=== PATIENT | female | born 1955 | race African-American/Black ===

== ENCOUNTER 2016-10-15 10:47 | Day surgery (SDC) | payer MEDICARE, OTHER ==
[~2016-10-15] VITALS: Ht 157.5 cm; Wt 68.2 kg
[~2016-10-15 10:47] MED LIST: APIX2.5T PO; CLAR10CA3 PO; FERR325T PO; HYDR-3583 PO; LOPE2TAB PO; LORA-392 PO; METO25TA3 PO; METR-1 PO; PANT40TA3 PO; PROM25SU RECTAL; PROM25TA5 PO; THERTAB15 PO
[2016-10-15] MEDS ORDERED: DEXA2TAB PO (11:27)
[2016-10-15] MEDS ORDERED: SIMV40TA PO (11:27)
[2016-10-15] MEDS ORDERED: NIFE1TAB86 PO (11:27)
[2016-10-15] MEDS ORDERED: DOCU100C PO (11:27)
[2016-10-15 11:36] VITALS: BP 159/87; PULSE 93; RESP 16; TEMP 98.2; O2SAT 100
[2016-10-15 11:53] LABS: EOSINOPHIL % 0.9 % (0.0-4.0); HEMATOCRIT 30.3 % (35.0-46.0); LYMPH % 40.8 % (9.0-44.0); LYMPHOCYTE # 0.8 TH/MM3 (1.0-4.8); MEAN CELL VOLUME 83.9 FL (80.0-100.0); MEAN CORPUSCULAR HEMOGLOBIN 27.6 PG (27.0-34.0); MEAN CORPUSCULAR HGB CONC 32.9 % (32.0-36.0); MONO % 7.7 % (0.0-8.0); NEUT % 49.6 % (16.0-70.0); PLATELET COUNT 88 TH/MM3 (150-450); RED BLOOD COUNT 3.61 MIL/MM3 (4.00-5.30); WHITE BLOOD COUNT 2.1 TH/MM3 (4.0-11.0)
[2016-10-15 11:55] LABS: HEMO FLAGS AUTO DIFF
[2016-10-15 12:21] LABS: BICARBONATE 28.8 MEQ/L (21.0-32.0); POTASSIUM 3.8 MEQ/L (3.5-5.1)
[2016-10-15 12:31] LABS: PLATELET ESTIMATE SMEAR LOW (NORMAL); PLATELET MORPHOLOGY NORMAL (NORMAL); SCAN/DIFF AUTO DIFF CONFIRMED
[2016-10-15] MEDS ORDERED: HEPARIN-NS/PF INJ 500 ML ONE (12:56)
[2016-10-15] MEDS ORDERED: MIDAZOLAM HCL 2 MG/2 ML VIAL ONE (12:57)
[2016-10-15] MEDS ORDERED: HEPARIN SODIUM - IV 10,000 UNITS/10 ML VIAL ONE (12:57)
--- NOTE | 2016-10-15 14:08 | MA ---
cc: DAVE SIU DATE: 10/15/2016 PREOPERATIVE DIAGNOSIS Difficulty with access left upper extremity AV fistula. POSTOPERATIVE DIAGNOSIS Difficulty with access left upper extremity AV fistula. PROCEDURE Fistulogram. DETAILS OF PROCEDURE The patient's left upper extremity was prepped and draped in a sterile fashion. There were multiple areas of ecchymosis around this that could be seen visibly through the skin and through ultrasound of the left upper extremity. Using ultrasound I got access just distal to the anastomosis of the left cephalic vein. After I got access to this area I injected dye through a micropuncture catheter. My findings were that the central arterial circulation including the left innominate vein, subclavian and axillary veins appeared to be widely patent. The left outflow cephalic vein appeared to be patent. It should be noted that it was difficult to see the arterial anastomosis as the flow was so brisk, although I suspect this was patent as well. At the end of the procedure we removed the catheter out and applied pressure to the left arm. The patient tolerated the procedure well. DO DONNELL Gallego/PAULETTE /1:38 PM /1:56 PM
[2016-10-15] MEDS ORDERED: IOHEXOL 350 MG/ML 50 ML BTL (for Cath Lab) OTHER ONE (14:15)
[2016-10-15] MEDS ORDERED: ONDANSETRON HCL 4 MG/2 ML VIAL ONE (15:14)
[2016-10-15] MEDS ORDERED: LORazepam 2 MG/ML VIAL IVP PRN (16:00)
[2016-10-15] MEDS ORDERED: POTASSIUM CHLORIDE 20 MEQ CONTROLLED RELEASE TAB PO PRN (16:00)
[2016-10-15] MEDS ORDERED: HOLD GLUCOPHAGE, GLUCOPHAGE XR, AND AVANDAMET XX PRN (16:00)
[2016-10-15] MEDS ORDERED: ATROPINE SULFATE 1 MG/ML VIAL IV PUSH PRN (16:00)
[2016-10-15] MEDS ORDERED: METOCLOPRAMIDE HCL 10 MG/2 ML VIAL IVS PRN (16:00)
[2016-10-15] MEDS ORDERED: SODIUM CHLOR 0.9% 250 ML IV PRN (16:00)
[2016-10-15] MEDS ORDERED: SODIUM NITROPRUSSIDE 50 MG/250 ML D5W IV SCH ×2 (16:00)
[2016-10-15] MEDS ORDERED: ONDANSETRON HCL 4 MG/2 ML VIAL IV PRN (16:00)
[2016-10-15] MEDS ORDERED: ENALAPRILAT 1.25 MG/ML VIAL IV PRN (16:00)
[2016-10-15] MEDS ORDERED: LABETALOL HCL 100 MG/20 ML VIAL IVP PRN (16:00)
[2016-10-15] MEDS ORDERED: cloNIDine HCL 0.1 MG TAB PO PRN (16:00)
[2016-10-15] MEDS ORDERED: oxyCODONE/ACETAMINOPHEN 5 MG/325 MG TAB PO PRN ×2 (16:00)
[2016-10-16] MEDS ORDERED: ASPIRIN EC 81 MG TABEC PO SCH (09:00)
[2016-11-05] MEDS ORDERED: REGL10TA5 PO (07:11)
[2016-11-05] MEDS ORDERED: ONDA8TAB8 SL (07:11)
[2016-11-05] MEDS ORDERED: PARO10TA2 PO (07:11)
[2016-11-05] MEDS ORDERED: RENACAP2 PO (07:11)
== END 2016-10-15 16:00 | disposition home or self-care (01) ==
LOC: HDOC 10:47 → HDIC 10:48 → HDOC 16:00
PROVIDERS: ATTEND Surgery
DX: T82.898A Other specified complication of vascular prosthetic devices, implants and grafts, initial encounter (principal); I10 Essential (primary) hypertension; E78.5 Hyperlipidemia, unspecified; E11.9 Type 2 diabetes mellitus without complications; Z79.84 Long term (current) use of oral hypoglycemic drugs; Z79.01 Long term (current) use of anticoagulants; N18.6 End stage renal disease
CPT/HCPCS: 75820; 80048; 85025; 85610; J1644; J2250; J2405; J3010; Q9967

== ENCOUNTER → 2016-11-05 | Day surgery (SDC) | payer MEDICARE, OTHER ==
[~2016-11-05] VITALS: Ht 157.5 cm; Wt 59.3 kg
[~2016-11-05] MED LIST changes: +ACETAMINOPHEN/HYDROcodone 325 MG/5 MG TAB PO PRN; +BUPIVACAINE/EPINEPHRINE 0.25% PF 30 ML VIAL ONE; +DEXA2TAB PO; +DO NOT ADM ANY ANTICOAGULANT DRUGS XX PRN; +DOCU100C PO; +FAMOTIDINE 20 MG/2 ML VIAL ONE; +GELFOAM SIZE 100 ONE; +HEPARIN SODIUM - IV 10,000 UNITS/10 ML VIAL ONE; +HEPARIN SODIUM - SQ 10,000 UNITS/ML VIAL ONE; +INSULIN HUMAN REGULAR 1,000 UNITS/10 ML VIAL SQ PRN; +Infusaport/Implanted VAD PRN NS Lock Flush IVF; +LACTATED RINGER'S 1000 ML IV SCH; +MAGNESIUM SULFATE 1 GM/100 ML IV PRN; +METOCLOPRAMIDE HCL 10 MG/2 ML VIAL IV ONE; +METOCLOPRAMIDE HCL 10 MG/2 ML VIAL ONE; +METOPROLOL TARTRATE 25 MG TAB ONE; +METOPROLOL TARTRATE 25 MG TAB PO PRN; -METR-1 PO; +MIDAZOLAM HCL 2 MG/2 ML VIAL ONE; +MORPHINE SULFATE 4 MG/ML INJ IV PRN; +NIFE1TAB86 PO; +ONDA8TAB8 SL; +ONDANSETRON HCL 4 MG/2 ML VIAL IV ONE; +ONDANSETRON HCL 4 MG/2 ML VIAL IV PUSH PRN; +PARO10TA2 PO; +POTASSIUM CHLOR 20 MEQ 100 ML x 2 BAGS IV PRN; +POTASSIUM CHLOR 20 MEQ/100 ML x 1 BAG IV PRN; +POTASSIUM PHOSPHATE 21 MMOL/NS 250 ML IV PRN; +PROPOFOL 200 MG/20 ML AMP IV ONE; +PROTAMINE SULFATE 50 MG/5 ML VIAL ONE; +REGL10TA5 PO; +RENACAP2 PO; +SIMV40TA PO; +SODIUM CHLOR 0.9% 250 ML INJ 250 ML ONE; +SODIUM CHLORID 0.9% 500 ML INJ 500 ML ONE; +SODIUM CHLORID 0.9% 500 ML IV SCH; +SODIUM CHLORIDE 0.9% FLUSH 5 ML FLUSH IV FLUSH PRN; +SODIUM CHLORIDE 0.9% FLUSH 5 ML FLUSH IV FLUSH SCH; +THROMBIN (TOPICAL) 5,000 UNIT VIAL ONE; +VANCOMYCIN HCL 1000 MG VIAL ONE; +ceFAZolin 2 GM PREMIX 50 ML ONE
[2016-11-05 07:21] VITALS: BP 107/71; PULSE 125; RESP 20; TEMP 98.7; O2SAT 94
[2016-11-05 07:42] LABS: AUTOMATED NEUTROPHIL # 3.2 TH/MM3 (1.8-7.7); BASOPHIL % 0.9 % (0.0-2.0); EOSINOPHIL % 0.2 % (0.0-4.0); HEMATOCRIT 30.4 % (35.0-46.0); HEMO FLAGS DIFF FINAL; MEAN CELL VOLUME 85.9 FL (80.0-100.0); MEAN CORPUSCULAR HEMOGLOBIN 27.8 PG (27.0-34.0); MEAN CORPUSCULAR HGB CONC 32.3 % (32.0-36.0); MONO % 14.3 % (0.0-8.0); NEUT % 64.6 % (16.0-70.0); PLATELET COUNT 157 TH/MM3 (150-450); RED BLOOD COUNT 3.54 MIL/MM3 (4.00-5.30); RED CELL DISTRIBUTION WIDTH 22.4 % (11.6-17.2)
[2016-11-05 07:57] LABS: ALT (GPT) 13 U/L (10-53); ANION GAP 13 MEQ/L (5-15); AST (GOT) 19 U/L (15-37); BICARBONATE 23.2 MEQ/L (21.0-32.0); CHLORIDE 103 MEQ/L (98-107); GLOMERULAR FILTRATION RATE 8 ML/MIN (>89); POTASSIUM 3.8 MEQ/L (3.5-5.1); SODIUM (NA) 139 MEQ/L (136-145)
[2016-11-05 08:03] LABS: ALKALINE PHOSPHATASE 127 U/L (45-117); BLOOD UREA NITROGEN 32 MG/DL (7-18); TOTAL BILIRUBIN ADULT 0.6 MG/DL (0.2-1.0)
--- NOTE | 2016-11-05 08:16 | RADRPT ---
EXAM DATE/TIME: 11/05/2016 06:39 [facility] COMPARISON: CHEST SINGLE AP, September 05, 2016, 16:14. INDICATIONS: Evaluate for ant pulmonary disease as patient is pre-op for A-V fistula. MEDICAL HISTORY: Hypertension. Gastroesophageal reflux disease. SURGICAL HISTORY: Hysterectomy. ENCOUNTER: Initial ACUITY: 1 day PAIN SCORE: 0/10 LOCATION: Bilateral chest FINDINGS: A small left pleural effusion is noted. Right internal jugular Atbzhk-R-Fufi has its tip in the supe rior vena cava. Left internal jugular tunnel dialysis catheter has its tips in the right atrium. Th ere is no pneumothorax. The heart is stable. The pulmonary vascular pattern is normal. The lungs a re otherwise clear. Degenerative changes are noted throughout the thoracolumbar spine. CONCLUSION: 1. Small left pleural effusion. 2. Degenerative changes throughout the thoracolumbar spine. Renny Spencer MD on November 05, 2016 at 7:05 Board Certified Radiologist. This report was verified electronically.
--- NOTE | 2016-11-05 10:39 | MP ---
cc: DAVE VELIZ DATE OF SURGERY 11/05/2016 PREOPERATIVE DIAGNOSIS End-stage renal disease. POSTOPERATIVE DIAGNOSIS End-stage renal disease. PROCEDURE Right upper extremity brachial-brachial A-V fistula creation. SURGEON Dr. Veliz SOLDERING INSPECTOR Nila Robison. ANESTHESIA Local with 20 cc of 0.25% Marcaine with epinephrine right upper extremity and MAC. IV FLUIDS 300 cc. URINE OUTPUT Not calculated. COMPLICATIONS None. PROCEDURE The patient's right upper extremity was prepped and draped in sterile fashion after being under MAC anesthesia. I got access on the medial aspect of the right arm with a scalpel and electrocautery. I dissected down to the brachial artery and brachial vein with fine Metzenbaum scissors. With sharp dissection I removed the periadventitial tissue to mobilize the brachial artery. Once I mobilized the brachial artery and the brachial vein, I tied off side branches with small and medium clips as needed as well as 2-0 silk ties. We ended up using 3000 units of heparin before using pediatric profunda clamps in order to control the brachial artery. I made an arteriotomy with an 11-blade and micro-Valdovinos scissors. I then divided the brachial vein distally with a medium clip, then a 2-0 silk suture. Once I divided it, I performed an end-to-side anastomosis with the brachial vein to the brachial artery. At the end there was a good thrill in the fistula and there was an audible thrill in the right radial artery and the palmar arch. I use Surgicel to help out with hemostasis and minimal use of electrocautery. I then closed in layers with interrupted 2-0 and 3-0 Vicryl absorbable sutures and a 4-0 Monocryl. The patient tolerated the procedure we placed Dermabond over the skin and a Kerlix dressing at the end of the case. DO DONNELL Gallego/DAR /10:16 AM /10:34 AM
--- NOTE | 2016-11-05 12:18 | EKG ---
Date Performed: 11/05/2016 Time Performed: 06:53:07 PTAGE: 61 years EKG: SINUS TACHYCARDIA MARKED LEFT AXIS DEVIATION PATTERN CONSISTENT WITH PULMONARY DISEASE Comp ared to prior tracing no significant change ABNORMAL ECG PREVIOUS TRACING : 08/16/2016 17.44 DOCTOR: Trenton Townsend Interpretating Date/Time 11/05/2016 12:18:10
[2016-11-05 12:25] VITALS: BP 114/81; PULSE 98; RESP 17; TEMP 97.8; O2SAT 100
== END | disposition home or self-care (01) ==
LOC: HSDC 06:08
PROVIDERS: ATTEND Surgery
DX: I12.0 Hypertensive chronic kidney disease with stage 5 chronic kidney disease or end stage renal disease (principal); N18.6 End stage renal disease; E11.22 Type 2 diabetes mellitus with diabetic chronic kidney disease; K21.9 Gastro-esophageal reflux disease without esophagitis; J90 Pleural effusion, not elsewhere classified; R94.31 Abnormal electrocardiogram [ECG] [EKG]; Z99.2 Dependence on renal dialysis
CPT/HCPCS: 01844; 36821; 71010; 76937; 80053; 85025; 86850; 86900; 86901; 93005; J1642; J1644; J2250; J2405; J2765; J3010; J3370; J7040; J7050; J0690; J2720

== ENCOUNTER 2016-11-08 14:15 | Inpatient (IN) | payer MEDICARE, OTHER ==
[~2016-11-08] VITALS: Ht 152.4 cm; Wt 60.4 kg
[~2016-11-08 14:15] MED LIST changes: -ACETAMINOPHEN/HYDROcodone 325 MG/5 MG TAB PO PRN; -BUPIVACAINE/EPINEPHRINE 0.25% PF 30 ML VIAL ONE; -DEXA2TAB PO; -DO NOT ADM ANY ANTICOAGULANT DRUGS XX PRN; -FAMOTIDINE 20 MG/2 ML VIAL ONE; -GELFOAM SIZE 100 ONE; -HEPARIN SODIUM - IV 10,000 UNITS/10 ML VIAL ONE; -HEPARIN SODIUM - SQ 10,000 UNITS/ML VIAL ONE; -INSULIN HUMAN REGULAR 1,000 UNITS/10 ML VIAL SQ PRN; -Infusaport/Implanted VAD PRN NS Lock Flush IVF; -LACTATED RINGER'S 1000 ML IV SCH; -LOPE2TAB PO; -MAGNESIUM SULFATE 1 GM/100 ML IV PRN; -METOCLOPRAMIDE HCL 10 MG/2 ML VIAL IV ONE; -METOCLOPRAMIDE HCL 10 MG/2 ML VIAL ONE; -METOPROLOL TARTRATE 25 MG TAB ONE; -METOPROLOL TARTRATE 25 MG TAB PO PRN; -MIDAZOLAM HCL 2 MG/2 ML VIAL ONE; -MORPHINE SULFATE 4 MG/ML INJ IV PRN; -ONDANSETRON HCL 4 MG/2 ML VIAL IV ONE; -ONDANSETRON HCL 4 MG/2 ML VIAL IV PUSH PRN; -POTASSIUM CHLOR 20 MEQ 100 ML x 2 BAGS IV PRN; -POTASSIUM CHLOR 20 MEQ/100 ML x 1 BAG IV PRN; -POTASSIUM PHOSPHATE 21 MMOL/NS 250 ML IV PRN; -PROPOFOL 200 MG/20 ML AMP IV ONE; -PROTAMINE SULFATE 50 MG/5 ML VIAL ONE; -SIMV40TA PO; -SODIUM CHLOR 0.9% 250 ML INJ 250 ML ONE; -SODIUM CHLORID 0.9% 500 ML INJ 500 ML ONE; -SODIUM CHLORID 0.9% 500 ML IV SCH; -SODIUM CHLORIDE 0.9% FLUSH 5 ML FLUSH IV FLUSH PRN; -SODIUM CHLORIDE 0.9% FLUSH 5 ML FLUSH IV FLUSH SCH; -THERTAB15 PO; -THROMBIN (TOPICAL) 5,000 UNIT VIAL ONE; -VANCOMYCIN HCL 1000 MG VIAL ONE; -ceFAZolin 2 GM PREMIX 50 ML ONE
[2016-11-08 14:17] VITALS: BP 103/62; PULSE 126; RESP 28; TEMP 97.8; O2SAT 95
[2016-11-08] MEDS ORDERED: ONDANSETRON HCL 4 MG/2 ML VIAL IVP ONE (15:30)
[2016-11-08] MEDS ORDERED: SODIUM CHLORID 0.9% 500 ML INJ 500 ML IV ONE (15:30)
[2016-11-08] MEDS ORDERED: SODIUM CHLORIDE 0.9% FLUSH 5 ML FLUSH IVF PRN (15:30)
[2016-11-08] MEDS ORDERED: HYDROmorphone HCL PF 1 MG/ML VIAL IV PUSH ONE (15:30)
--- NOTE | 2016-11-08 15:34 | PD ---
HPI Chief Complaint: Abdominal Pain Time Seen by Provider: 15:27 Travel History International Travel<30 days: No Contact w/Intl Traveler<30days: No Traveled to known affect area: No History of Present Illness HPI 61-year-old female presents to the emergency department for evaluation nausea, vomiting, abdominal pain. She states this started a week ago, but for the last 4 days, she is unable to keep any food or fluids down. Patient is undergoing chemotherapy by Dr. Bai for endometrial cancer that has metastasized to the lung, liver. The patient also states she has been slightly increased shortness of breath. She has tried Zofran, Phenergan, Reglan at home with no improvement. She has chronic renal failure and is on dialysis Saturday, , Saturday by Dr. Nava. She probably had an AV fistula placed on Saturday of this week in her right upper arm, but is not working. She did receive dialysis on Saturday and stated that very little fluid was taken off. Patient states she feels dehydrated. PFSH Past Medical History Hx Anticoagulant Therapy: Yes Arthritis: Yes Asthma: No Autoimmune Disease: No Heart Rhythm Problems: No Cancer: Yes Cardiovascular Problems: Yes High Cholesterol: No Chemotherapy: Yes Chest Pain: No Congestive Heart Failure: No COPD: No Diabetes: Yes Dialysis: Yes Diminished Hearing: No Endocrine: No Gastrointestinal Disorders: Yes (REFLUX) GERD: No Genitourinary: Yes Hepatitis: No Hiatal Hernia: No Hypertension: Yes Immune Disorder: No Implanted Vascular Access Dvce: Yes Kidney Stones: No Musculoskeletal: Yes Neurologic: No Psychiatric: No Reproductive: No Respiratory: Yes Radiation Therapy: No Renal Failure: Yes Sickle Cell Disease: No Sleep Apnea: No Thyroid Disease: No Ulcer: No Past Surgical History Abdominal Surgery: Yes AICD: No Arteriovenous Shunt: No Body Medical Devices: N/A Cardiac Surgery: No Ear Surgery: No Endocrine Surgery: No Eye Surgery: No Genitourinary Surgery: Yes (STENTS TOSHA. URETERS) Gynecologic Surgery: Yes (HYSTERECTOMY) Hysterectomy: Yes Insulin Pump: No Joint Replacement: No Oral Surgery: No Pacemaker: No Thoracic Surgery: No Other Surgery: Yes (2 stents in kidney, VASCATH AND PORT IN R UPPER CHEST) Social History Alcohol Use: No Tobacco Use: No Substance Use: No Allergies-Medications (Allergen,Severity, Reaction): Coded Allergies: No Known Allergies (Unverified , 11/08/16) Reported Meds & Prescriptions Reported Meds & Active Scripts Active Hydrocodone-Acetaminophen 10-325 mg Tab 1 Tab PO Q6HR PRN Pantoprazole (Pantoprazole Sodium) 40 Mg Tab 40 Mg PO DAILY Phenergan (Promethazine HCl) 25 Mg Tab 25 Mg PO Q4H PRN Promethegan Supp (Promethazine HCl) 25 Mg Supp 25 Mg RECTAL DAILY PRN Metoprolol Tartrate 25 Mg Tab 25 Mg PO Q12H Eliquis (Apixaban) 2.5 Mg Tab 2.5 Mg PO BID Ativan (Lorazepam) 0.5 Mg Tab 0.5 Mg PO Q6H PRN Reported Reglan (Metoclopramide HCl) 10 Mg Tab 10 Mg PO TIDAC Renal Vitamin (B-Complex W/ C & Folic Acid) 1 Cap 1 Cap PO DAILY If on dialysis, take after treatment. Paroxetine (Paroxetine HCl) 10 Mg Tab 10 Mg PO DAILY Ondansetron Odt 8 Mg Tab 8 Mg SL Q8H PRN Docusate Sodium 100 Mg Cap 100 Mg PO BID Claritin (Loratadine) 10 Mg Cap 10 Mg PO DAILY Ferrous Sulfate 325 Mg Tab 325 Mg PO DAILY Review of Systems Except as stated in HPI: all other systems reviewed are Neg Physical Exam Narrative GENERAL: Well-developed well-nourished female patient, afebrile. SKIN: Warm and dry. There is an AV fistula to the right upper arm with no bruit or thrill. She does have a Vas-Cath to the left chest. There is an old AV fistula to the left upper arm. HEAD: Normocephalic. Atraumatic. EYES: No scleral icterus. No injection or drainage. NECK: Supple, trachea midline. No JVD or lymphadenopathy. CARDIOVASCULAR: Regular rate and rhythm without murmurs, gallops, or rubs. RESPIRATORY: Breath sounds equal bilaterally. No accessory muscle use. Lungs sounds diminished. GASTROINTESTINAL: Abdomen soft with diffuse tenderness. MUSCULOSKELETAL: No cyanosis, or edema. BACK: Nontender without obvious deformity. No CVA tenderness. Data Data Last Documented VS Vital Signs Date Time Temp Pulse Resp B/P Pulse Ox O2 Delivery O2 Flow Rate FiO2 11/08/16 17:30 114 18 113/72 97 Room Air 11/08/16 14:17 97.8 Orders Complete Blood Count With Diff (11/08/16 15:24) Comprehensive Metabolic Panel (11/08/16 15:24) Lipase (11/08/16 15:24) Prothrombin Time / Inr (Pt) (11/08/16 15:24) Act Partial Throm Time (Ptt) (11/08/16 15:24) Ct Abd/Pel W/O Iv Contrast (11/08/16 15:24) Iv Access Insert/Monitor (11/08/16 15:24) Ecg Monitoring (11/08/16 15:24) Oximetry (11/08/16 15:24) Ondansetron Inj (Zofran Inj) (11/08/16 15:30) Sodium Chloride 0.9% Flush (Ns Flush) (11/08/16 15:30) Electrocardiogram (11/08/16 15:24) Sodium Chlorid 0.9% 500 Ml Inj (Ns 500 M (11/08/16 15:30) Hydromorphone Pf Inj (Dilaudid Pf Inj) (11/08/16 15:30) Chest, Single Ap (11/08/16 ) Magnesium (Mg) (11/08/16 15:34) Place Ng Tube To Low Intermit (11/08/16 17:00) Insert Ng Tube (11/08/16 17:00) Labs Laboratory Tests Test 11/08/16 17:00 White Blood Count 4.9 TH/MM3 Red Blood Count 3.19 MIL/MM3 Hemoglobin 9.2 GM/DL Hematocrit 29.1 % Mean Corpuscular Volume 91.1 FL Mean Corpuscular Hemoglobin 28.9 PG Mean Corpuscular Hemoglobin 31.7 % Concent Red Cell Distribution Width 25.6 % Platelet Count 165 TH/MM3 Mean Platelet Volume 7.3 FL Neutrophils (%) (Auto) 67.3 % Lymphocytes (%) (Auto) 14.0 % Monocytes (%) (Auto) 18.2 % Eosinophils (%) (Auto) 0.1 % Basophils (%) (Auto) 0.4 % Neutrophils # (Auto) 3.3 TH/MM3 Lymphocytes # (Auto) 0.7 TH/MM3 Monocytes # (Auto) 0.9 TH/MM3 Eosinophils # (Auto) 0.0 TH/MM3 Basophils # (Auto) 0.0 TH/MM3 CBC Comment AUTO DIFF Prothrombin Time 13.4 SEC Prothromb Time International 1.2 RATIO Ratio Activated Partial 33.8 SEC Thromboplast Time Sodium Level 141 MEQ/L Potassium Level 4.6 MEQ/L Chloride Level 101 MEQ/L Carbon Dioxide Level 25.6 MEQ/L Anion Gap 14 MEQ/L Blood Urea Nitrogen 52 MG/DL Creatinine 7.26 MG/DL Estimat Glomerular Filtration 7 ML/MIN Rate Random Glucose 77 MG/DL Calcium Level 8.4 MG/DL Magnesium Level 2.0 MG/DL Total Bilirubin 0.6 MG/DL Aspartate Amino Transf 18 U/L (AST/SGOT) Alanine Aminotransferase 13 U/L (ALT/SGPT) Alkaline Phosphatase 128 U/L Total Protein 7.3 GM/DL Albumin 2.1 GM/DL Lipase 54 U/L MDM Medical Decision Making Medical Screen Exam Complete: Yes Emergency Medical Condition: Yes Medical Record Reviewed: Yes Interpretation(s) Last Impressions Abdomen/Pelvis CT 11/08/16 1524 Signed Impressions: Service Date/Time: November 16:18 - CONCLUSION: 1. The small bowel is quite distended throughout except for the very distal terminal ileum. I do not see a transition point but small bowel is clearly more dilated than in June 2016. The colon is decompressed; it could be a distal small bowel obstruction. 2. Severe hydronephrosis and hydroureter bilaterally with removal of the Double-J ureteral catheters. 3. The left lobe of the liver metastatic lesion is clearly smaller. Luis Mar MD Chest X-Ray 11/08/16 0000 Signed Impressions: Service Date/Time: November 15:39 - CONCLUSION: Moderate- sized left pleural effusion. Right-sided Lmgnxb-l-Iaig catheter and left-sided dual-lumen catheter in good position. Luis Mar MD Differential Diagnosis Electrolyte abnormality versus ACS versus acute on chronic renal failure Narrative Course 61-year-old female presents to the emergency Department treatment we should nausea, vomiting, abdominal pain. Patient is a cancer patient with Dr. Phoenix currently undergoing chemotherapy as well as a dialysis patient. EKG, CBC, CMP , magnesium, lipase, PTT, PTT/INR ordered and pending. Chest x-ray and CT the abdomen/pelvis are ordered and pending. EKG shows sinus tachycardia, heart 108, no acute ST changes. CBC shows hemoglobin 9.2, hematocrit 29.1. CMP shows a 52, creatinine 7.26. Lipase is 54. Magnesium is 2.0. PT is 13.4, INR 1.2, PTT 33.8. Chest x-ray shows moderate-sized left pleural effusion, right-sided Fnzcoc-q-Vfcs catheter left- sided dual lumen catheter in good position. CT abdomen/pelvis shows 1. The small bowel is quite distended throughout except for the very distal terminal ileum. I do not see a transition point but small bowel is clearly more dilated than in June 2016. The colon is decompressed; it could be a distal small bowel obstruction; 2. Severe hydronephrosis and hydroureter bilaterally with removal of the Double-J ureteral catheters; 3. The left lobe of the liver metastatic lesion is clearly smaller. I spoke to Dr. Kimble who would like a flat/upright abdominal film in the morning and he will see her in the morning. Dr. Perez accepted admission. Diagnosis Primary Impression: Small bowel obstruction Additional Impression: ESRD on hemodialysis Admitting Information Admitting Physician Requests: Admit Ruth Ann Page Nov 08, 2016 15:34
--- NOTE | 2016-11-08 16:09 | RADRPT ---
EXAM DATE/TIME: 11/08/2016 15:39 [facility] COMPARISON: CHEST SINGLE AP, November 05, 2016, 6:39. INDICATIONS : Patient has had abdomen pain and vomiting for four days. MEDICAL HISTORY : Endometrial cancer, Bilateral ureteral obstruction, GERD, HLD, HTN, SURGICAL HISTORY : Laparoscopic hysterectomy with bilateral salpingo-oophorectomy, Vaginal ENCOUNTER: Initial ACUITY: 4 - 6 days PAIN SCORE: 8/10 LOCATION: Abdomen FINDINGS: A single view of the chest demonstrates the lungs to be symmetrically aerated without evidence of mas s, or infiltrate. Moderate left-sided pleural effusion. Right IJ central line and Gortfi-g-Fgpz in go od position. Left subclavian dual-lumen catheter is stable. The cardiomediastinal contours are unrema rkable. Osseous structures are intact. CONCLUSION: Moderate-sized left pleural effusion. Right-sided Bkudme-o-Zvpz catheter and left-sided dual-lumen ca theter in good position. Luis Mar MD on November 08, 2016 at 16:06 Board Certified Radiologist. This report was verified electronically.
--- NOTE | 2016-11-08 16:49 | RADRPT ---
EXAM DATE/TIME: 11/08/2016 16:18 [facility] COMPARISON: Prior study June 2016 used for comparison. INDICATIONS : Abdominal pain. Dialysis. ORAL CONTRAST: No oral contrast ingested. RADIATION DOSE: 9.86 CTDIvol (mGy) MEDICAL HISTORY : Renal failure, chronic. Hypertension. SURGICAL HISTORY : Hysterectomy. Tubal ligation. Dialysis catheter. ENCOUNTER: Initial ACUITY: 1 day PAIN SCALE: 5/10 LOCATION: Bilateral lower quadrant TECHNIQUE: Volumetric scanning of the abdomen and pelvis was performed. Using automated exposure control and adjustment of the mA and/or kV according to patient size, radiation dose was kept as low as reasonably achievable to obtain optimal diagnostic quality images. FINDINGS: Noncontrast CT scan of the abdomen and pelvis was performed. There is a mass in the le ft lobe of the liver that previously would distort the contour of the capsule. That is actually claudio rly smaller today. This is felt to be metastatic disease in June and May 2016. It is actua lly clearly smaller. The rest of the liver is unremarkable. There is some increased density within a noninflamed gallbladder. There is extensive distension of the small bowel with numerous loops. I do not see a definite transi tion zone. The colon is decompressed. The distal terminal ileum is not very distended. There is some fluid in the cul-de-sac. There are some scattered areas of free fluid within the mesen deborah. I do not see any free air. The kidney remains severely hydronephrotic. The Double-J ureteral catheters have been removed. The u reters are quite dilated. There is a large left pleural effusion. It is new from the previous study. Bone windows are unremar kable except for degenerative facet disease. CONCLUSION: 1. The small bowel is quite distended throughout except for the very distal terminal ileum. I do not see a transition point but small bowel is clearly more dilated than in June 2016. The colon is d ecompressed; it could be a distal small bowel obstruction. 2. Severe hydronephrosis and hydroureter bilaterally with removal of the Double-J ureteral catheters. 3. The left lobe of the liver metastatic lesion is clearly smaller. Luis Mar MD on November 08, 2016 at 16:41 Board Certified Radiologist. This report was verified electronically.
[2016-11-08 17:00] VITALS: RESP 18; O2SAT 98
[2016-11-08 17:30] VITALS: BP 113/72; PULSE 114; RESP 18; O2SAT 97
[2016-11-08 17:35] LABS: AUTOMATED NEUTROPHIL # 3.3 TH/MM3 (1.8-7.7); BASOPHIL % 0.4 % (0.0-2.0); EOSINOPHIL % 0.1 % (0.0-4.0); HEMATOCRIT 29.1 % (35.0-46.0); LYMPHOCYTE # 0.7 TH/MM3 (1.0-4.8); MEAN CELL VOLUME 91.1 FL (80.0-100.0); MEAN CORPUSCULAR HEMOGLOBIN 28.9 PG (27.0-34.0); MEAN CORPUSCULAR HGB CONC 31.7 % (32.0-36.0); MONO % 18.2 % (0.0-8.0); NEUT % 67.3 % (16.0-70.0); PLATELET COUNT 165 TH/MM3 (150-450); RED BLOOD COUNT 3.19 MIL/MM3 (4.00-5.30); RED CELL DISTRIBUTION WIDTH 25.6 % (11.6-17.2); WHITE BLOOD COUNT 4.9 TH/MM3 (4.0-11.0)
[2016-11-08 17:37] LABS: APTT (PATIENT) 33.8 SEC (24.3-30.1); INTERNATIONAL NORMALIZED RATIO 1.2 RATIO; PROTHROMBIN TIME - PATIENT 13.4 SEC (9.8-11.6)
[2016-11-08 17:45] LABS: ALKALINE PHOSPHATASE 128 U/L (45-117); ALT (GPT) 13 U/L (10-53); ANION GAP 14 MEQ/L (5-15); AST (GOT) 18 U/L (15-37); BICARBONATE 25.6 MEQ/L (21.0-32.0); BLOOD UREA NITROGEN 52 MG/DL (7-18); CHLORIDE 101 MEQ/L (98-107); GLOMERULAR FILTRATION RATE 7 ML/MIN (>89); POTASSIUM 4.6 MEQ/L (3.5-5.1); SODIUM (NA) 141 MEQ/L (136-145); TOTAL BILIRUBIN ADULT 0.6 MG/DL (0.2-1.0)
[2016-11-08 17:48] LABS: HEMO FLAGS AUTO DIFF
[2016-11-08 18:24] LABS: BURR CELLS 1+ (NORMAL); OVALOCYTES 1+ (NORMAL); PLATELET ESTIMATE SMEAR NORMAL (NORMAL); PLATELET MORPHOLOGY NORMAL (NORMAL); SCAN/DIFF AUTO DIFF CONFIRMED
[2016-11-08 18:57] VITALS: BP 111/66; PULSE 113; O2SAT 98
[2016-11-08] MEDS ORDERED: NALOXONE HCL 0.4 MG/ML AMP IV PRN (19:00)
--- NOTE | 2016-11-08 19:08 | HHI.HP ---
HPI Service [facility] Hospitalists Primary Care Physician Gregg Golden Jr, MD Admission Diagnosis SBO; ESRD on dialysis Chief Complaint: increasing abdominal pain Travel History International Travel<30 Days: No Contact w/Intl Traveler <30 Da: No Traveled to Known Affected Are: No History of Present Illness 61-year-old female presents to the emergency department for evaluation nausea, vomiting, abdominal pain. She states this started a week ago, but for the last 4 days, she is unable to keep any food or fluids down. Patient is undergoing chemotherapy by Dr. Bai for endometrial cancer that has metastasized to the lung, liver. The patient also states she has been slightly increased shortness of breath. She has tried Zofran, Phenergan, Reglan at home with no improvement. She has chronic renal failure and is on dialysis Saturday, , Saturday by Dr. Nava. She probably had an AV fistula placed on Saturday of this week in her right upper arm, but is not working. She did receive dialysis on Saturday and stated that very little fluid was taken off. In er found to have small bowel obstruction and admitted with consult to general surgery and will consult nephrology Review of Systems Gastrointestinal: COMPLAINS OF: Abdominal pain, Nausea Past Family Social History Past Medical History djd,renal failure on dialysis,gerd,endometrial cnacer on chemo dvt Past Surgical History hysterectomy,av fistula Reported Medications Hydrocodone-Acetaminophen 10-325 mg Tab 1 Tab PO Q6HR PRN Pantoprazole (Pantoprazole Sodium) 40 Mg Tab 40 Mg PO DAILY Phenergan (Promethazine HCl) 25 Mg Tab 25 Mg PO Q4H PRN Promethegan Supp (Promethazine HCl) 25 Mg Supp 25 Mg RECTAL DAILY PRN Metoprolol Tartrate 25 Mg Tab 25 Mg PO Q12H Eliquis (Apixaban) 2.5 Mg Tab 2.5 Mg PO BID Ativan (Lorazepam) 0.5 Mg Tab 0.5 Mg PO Q6H PRN Reported Reglan (Metoclopramide HCl) 10 Mg Tab 10 Mg PO TIDAC Renal Vitamin (B-Complex W/ C & Folic Acid) 1 Cap 1 Cap PO DAILY If on dialysis, take after treatment. Paroxetine (Paroxetine HCl) 10 Mg Tab 10 Mg PO DAILY Ondansetron Odt 8 Mg Tab 8 Mg SL Q8H PRN Docusate Sodium 100 Mg Cap 100 Mg PO BID Claritin (Loratadine) 10 Mg Cap 10 Mg PO DAILY Ferrous Sulfate 325 Mg Tab 325 Allergies: Coded Allergies: No Known Allergies (Unverified , 11/08/16) Social History NS,ND Physical Exam Vital Signs Vital Signs Date Time Temp Pulse Resp B/P Pulse Ox O2 Delivery O2 Flow Rate FiO2 11/08/16 18:57 113 111/66 98 Room Air 11/08/16 17:30 114 18 113/72 97 Room Air 11/08/16 17:00 18 98 Room Air 11/08/16 14:17 97.8 126 28 103/62 95 Room Air Physical Exam GENERAL: This is a well-nourished, well-developed patient, in no apparent distress. SKIN: No rashes, ecchymoses or lesions. Cool and dry.fistula arm HEAD: Atraumatic. Normocephalic. No temporal or scalp tenderness. EYES: Pupils equal round and reactive. Extraocular motions intact. No scleral icterus. No injection or drainage. ENT: Nose without bleeding, purulent drainage or septal hematoma. Throat without erythema, tonsillar hypertrophy or exudate. Uvula midline. Airway patent. NECK: Trachea midline. No JVD or lymphadenopathy. Supple, nontender, no meningeal signs. CARDIOVASCULAR: Regular rate and rhythm without murmurs, gallops, or rubs. RESPIRATORY: Clear to auscultation. Breath sounds equal bilaterally. No wheezes , rales, or rhonchi. GASTROINTESTINAL: Abdomen somewhat distended with diffuse abdominal pain no rebound MUSCULOSKELETAL: Extremities without clubbing, cyanosis, or edema. No joint tenderness, effusion, or edema noted. No calf tenderness. Negative Homans sign bilaterally. NEUROLOGICAL: Awake and alert. Cranial nerves II through XII intact. Motor and sensory grossly within normal limits. Five out of 5 muscle strength in all muscle groups. Normal speech. Laboratory Laboratory Tests Test 11/08/16 17:00 White Blood Count 4.9 Red Blood Count 3.19 Hemoglobin 9.2 Hematocrit 29.1 Mean Corpuscular Volume 91.1 Mean Corpuscular Hemoglobin 28.9 Mean Corpuscular Hemoglobin 31.7 Concent Red Cell Distribution Width 25.6 Platelet Count 165 Mean Platelet Volume 7.3 Neutrophils (%) (Auto) 67.3 Lymphocytes (%) (Auto) 14.0 Monocytes (%) (Auto) 18.2 Eosinophils (%) (Auto) 0.1 Basophils (%) (Auto) 0.4 Neutrophils # (Auto) 3.3 Lymphocytes # (Auto) 0.7 Monocytes # (Auto) 0.9 Eosinophils # (Auto) 0.0 Basophils # (Auto) 0.0 CBC Comment AUTO DIFF Differential Comment AUTO DIFF CONFIRMED Platelet Estimate NORMAL Platelet Morphology Comment NORMAL Ovalocytes 1+ [place] Cells 1+ Prothrombin Time 13.4 Prothromb Time International 1.2 Ratio Activated Partial 33.8 Thromboplast Time Sodium Level 141 Potassium Level 4.6 Chloride Level 101 Carbon Dioxide Level 25.6 Anion Gap 14 Blood Urea Nitrogen 52 Creatinine 7.26 Estimat Glomerular Filtration 7 Rate Random Glucose 77 Calcium Level 8.4 Magnesium Level 2.0 Total Bilirubin 0.6 Aspartate Amino Transf 18 (AST/SGOT) Alanine Aminotransferase 13 (ALT/SGPT) Alkaline Phosphatase 128 Total Protein 7.3 Albumin 2.1 Lipase 54 Result Diagram: 11/08/16 1700 11/08/16 1700 Imaging Last 24 hours Impressions Abdomen/Pelvis CT 11/08/16 1524 Signed Impressions: Service Date/Time: November 16:18 - CONCLUSION: 1. The small bowel is quite distended throughout except for the very distal terminal ileum. I do not see a transition point but small bowel is clearly more dilated than in June 2016. The colon is decompressed; it could be a distal small bowel obstruction. 2. Severe hydronephrosis and hydroureter bilaterally with removal of the Double-J ureteral catheters. 3. The left lobe of the liver metastatic lesion is clearly smaller. Luis Mar MD Chest X-Ray 11/08/16 0000 Signed Impressions: Service Date/Time: November 15:39 - CONCLUSION: Moderate- sized left pleural effusion. Right-sided Pqsvcy-k-Ygmw catheter and left-sided dual-lumen catheter in good position. Luis Mar MD Assessment and Plan Problem List: (1) Small bowel obstruction Status: Acute Plan: consult general surgery repeat xray am (2) ESRD on hemodialysis Status: Chronic Plan: cr at 7 with rt pleural effusion will consult nephrology (3) Endometrial cancer Status: Chronic Plan: followed by Dr. Bai (4) DVT (deep venous thrombosis) Status: Chronic Plan: is on eliquis will continue for now Assessment and Plan further plan as case develops Code Status full Discussed Condition With patient Physician Certification 2 Midnight Certification Type: Admission for Inpatient Services Order for Inpatient Services The services are ordered in accordance with Medicare regulations or non- Medicare payer requirements, as applicable. In the case of services not specified as inpatient-only, they are appropriately provided as inpatient services in accordance with the 2-midnight benchmark. Estimated LOS (days): 3 3 days is the estimated time the patient will need to remain in the hospital, assuming treatment plan goals are met and no additional complications. Post-Hospital Plan: Not yet determined Enrike Kaye MD Nov 08, 2016 19:08
[2016-11-08] MEDS ORDERED: LORazepam 0.5 MG TAB PO PRN (20:00)
[2016-11-08] MEDS ORDERED: PILL SPLITTER OTHER PRN (20:00)
[2016-11-08] MEDS: METOPROLOL TARTRATE 25 MG TAB PO SCH (21:00)
[2016-11-08] MEDS: DOCUSATE SODIUM 100 MG CAP PO SCH (21:00)
[2016-11-08] MEDS: PANTOPRAZOLE SODIUM 40 MG VIAL IV PUSH SCH (21:33)
[2016-11-08] MEDS: HYDROmorphone HCL PF 1 MG/ML VIAL IV PRN ×2 (21:34→21:56)
[2016-11-08] MEDS: ONDANSETRON HCL 4 MG/2 ML VIAL IVP PRN (21:34)
[2016-11-08] MEDS: SODIUM CHLORIDE 0.9% FLUSH 5 ML FLUSH FLUSH PRN (21:35)
[2016-11-08] MEDS: APIXABAN 2.5 MG TABLET PO SCH (21:55)
[2016-11-08] MEDS: SODIUM CHLORIDE 0.9% FLUSH 5 ML FLUSH FLUSH SCH (21:57)
[2016-11-09] VITALS (7 sets, daily range): BP systolic 96–112; BP diastolic 62–80; PULSE 108–116; RESP 16–20; TEMP 96.3–97.2; O2SAT 94–99
[2016-11-09] MEDS: HYDROmorphone HCL PF 1 MG/ML VIAL IV PRN ×3 (03:52→18:25)
--- NOTE | 2016-11-09 08:17 | PD.CONS ---
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 She was receiving Taxol and Carboplatin chemotherapy but despite treatment had worsening metastatic disease to the liver, pulmonary nodule and worsening omental tumor, intraperitoneal disease and retroperitoneal adenopathy. She declined transitioning to comfort measures and was set to start her new regime of Doxil last Saturday but had to have her AV fistula redone. She is an ESRD getting dialysis on saturday, and saturdays. She was unable to get her dialysis yesterday d/t feeling so poorly. She has had some degree of nausea and vomiting for several months but aprox 4 days ago she has been unable to keep any food or fluids down. She reports her last BM was Saturday. She also reports worse generalized abdominal pain. She came into ER for further evaluation. Imaging obtained shown a SBO, NG tube has been placed to LIWS. Mrs. Ochoa's physician scientist and general surgery have been consulted. I spoke to her daughter Jenni on the phone and explained to her (and Mrs. Ochoa) the consults that have been placed along with why the NG tube was placed. Review of Systems Gastrointestinal: COMPLAINS OF: Abdominal pain, Nausea, Vomiting Past Family Social History Allergies: Coded Allergies: No Known Allergies (Unverified , 11/08/16) Past Medical History recurrent endometrial cancer ESRD arthritis GERD hypercholesterolemia uterine fibroids Past Surgical History breast Bx C-sections X 2 tubal ligation uterine Bx Active Ordered Medications Current Medications Ondansetron HCl (Zofran Inj) 4 mg ONCE ONCE IVP Last administered on 11/08/16 17:00; Start 11/08/16 at 15:30; Stop 11/08/16 at 15:31; Status DC IV Flush 2 ml 2 ml UNSCH PRN IVF FLUSH AFTER USING IV ACCESS; Start 11/08/16 at 15:30 Sodium Chloride (NS 500 ml Inj) 500 ml @ 500 mls/hr BOLUS ONCE IV Last administered on 11/08/16 17:00; Start 11/08/16 at 15:30; Stop 11/08/16 at 16:29; Status DC Hydromorphone HCl (Dilaudid Pf Inj) 0.5 mg ONCE ONCE IV PUSH Last administered on 11/08/16 17:00; Start 11/08/16 at 15:30; Stop 11/08/16 at 15:31; Status DC Apixaban (Eliquis) 2.5 mg BID PO Last administered on 11/08/16 21:55; Start 11/08/16 at 21:00 Vitamin B Complex/ Vit C/Folic Acid (Nephrocaps) 1 cap DAILY PO ; Start 11/09/16 at 09:00 Docusate Sodium (Colace) 100 mg BID PO ; Start 11/08/16 at 21:00 Ferrous Sulfate (Ferrous Sulfate) 325 mg DAILY PO ; Start 11/09/16 at 09:00 Lorazepam (Ativan) 0.5 mg Q6H PRN PO ANXIETY; Start 11/08/16 at 20:00 Metoprolol Tartrate (Lopressor) 25 mg Q12H PO ; Start 11/08/16 at 21:00 Paroxetine HCl (Paxil) 10 mg DAILY PO ; Start 11/09/16 at 09:00 IV Flush (NS Flush) 2 ml UNSCH PRN FLUSH FLUSH AFTER USING IV ACCESS Last administered on 11/08/16 21:35; Start 11/08/16 at 19:00 IV Flush (NS Flush) 2 ml BID FLUSH Last administered on 11/08/16 21:57; Start 11/08/16 at 21:00 Ondansetron HCl (Zofran Inj) 4 mg Q6H PRN IVP NAUSEA OR VOMITING Last administered on 11/08/16 21:34; Start 11/08/16 at 20:00 Metoclopramide HCl (Reglan Inj) 5 mg Q6H PRN IV PUSH NAUSEA OR VOMITING; Start 11/08/16 at 20:00 Hydromorphone HCl (Dilaudid Pf Inj) 0.5 mg Q4HR PRN IV pain 5-10 Last administered on 11/09/16 03:52; Start 11/08/16 at 20:00 Naloxone HCl (Narcan Inj) 0.4 mg UNSCH PRN IV SEE LABEL COMMENTS; Start at 19:00 Pantoprazole Sodium (Protonix Inj) 40 mg Q24H IV PUSH Last administered on t 21:33; Start 11/08/16 at 20:00 Miscellaneous (Pill Splitter) 1 ea UNSCH PRN OTHER SEE LABEL COMMENTS; Start at 20:00 Social History has 3 children Physical Exam Vital Signs Vital Signs Date Time Temp Pulse Resp B/P Pulse Ox O2 Delivery O2 Flow Rate FiO2 11/09/16 03:50 96.8 113 20 103/67 99 11/09/16 01:01 116 18 112/69 94 Room Air 11/09/16 00:19 116 18 112/69 94 11/08/16 23:02 18 11/08/16 18:57 113 111/66 98 Room Air 11/08/16 17:30 114 18 113/72 97 Room Air 11/08/16 17:00 18 98 Room Air 11/08/16 14:17 97.8 126 28 103/62 95 Room Air Physical Exam GENERAL: frail, NAD SKIN: No rashes, ecchymoses or lesions. Cool and dry. HEAD: Atraumatic. Normocephalic. No temporal or scalp tenderness. EYES: Pupils equal round and reactive. Extraocular motions intact. CARDIOVASCULAR: tachy no MMR RESPIRATORY: Clear to auscultation. Breath sounds equal bilaterally. No wheezes , rales, or rhonchi. GASTROINTESTINAL: Abdomen generalized tenderness with hyperactive BS X 4 MUSCULOSKELETAL: Extremities without clubbing, cyanosis. bilat LE edema, mild NEUROLOGICAL: Awake and alert. Laboratory Laboratory Tests Test 11/08/16 17:00 White Blood Count 4.9 Red Blood Count 3.19 Hemoglobin 9.2 Hematocrit 29.1 Mean Corpuscular Volume 91.1 Mean Corpuscular Hemoglobin 28.9 Mean Corpuscular Hemoglobin 31.7 Concent Red Cell Distribution Width 25.6 Platelet Count 165 Mean Platelet Volume 7.3 Neutrophils (%) (Auto) 67.3 Lymphocytes (%) (Auto) 14.0 Monocytes (%) (Auto) 18.2 Eosinophils (%) (Auto) 0.1 Basophils (%) (Auto) 0.4 Neutrophils # (Auto) 3.3 Lymphocytes # (Auto) 0.7 Monocytes # (Auto) 0.9 Eosinophils # (Auto) 0.0 Basophils # (Auto) 0.0 CBC Comment AUTO DIFF Differential Comment AUTO DIFF CONFIRMED Platelet Estimate NORMAL Platelet Morphology Comment NORMAL Ovalocytes 1+ Renetta Cells 1+ Prothrombin Time 13.4 Prothromb Time International 1.2 Ratio Activated Partial 33.8 Thromboplast Time Sodium Level 141 Potassium Level 4.6 Chloride Level 101 Carbon Dioxide Level 25.6 Anion Gap 14 Blood Urea Nitrogen 52 Creatinine 7.26 Estimat Glomerular Filtration 7 Rate Random Glucose 77 Calcium Level 8.4 Magnesium Level 2.0 Total Bilirubin 0.6 Aspartate Amino Transf 18 (AST/SGOT) Alanine Aminotransferase 13 (ALT/SGPT) Alkaline Phosphatase 128 Total Protein 7.3 Albumin 2.1 Lipase 54 Result Diagram: 11/08/16 1700 11/08/16 1700 Imaging Last Impressions Abdomen/Pelvis CT 11/08/16 1524 Signed Impressions: Service Date/Time: November 16:18 - CONCLUSION: 1. The small bowel is quite distended throughout except for the very distal terminal ileum. I do not see a transition point but small bowel is clearly more dilated than in June 2016. The colon is decompressed; it could be a distal small bowel obstruction. 2. Severe hydronephrosis and hydroureter bilaterally with removal of the Double-J ureteral catheters. 3. The left lobe of the liver metastatic lesion is clearly smaller. Luis Mar MD Chest X-Ray 11/08/16 0000 Signed Impressions: Service Date/Time: November 15:39 - CONCLUSION: Moderate- sized left pleural effusion. Right-sided [id number] catheter and left-sided dual-lumen catheter in good position. Luis Mar MD Assessment and Plan Problem List: (1) ESRD on hemodialysis Status: Chronic Plan: Her physician scientist has been consulted monitor labs dialysis Saturday, and Saturday (2) Endometrial cancer Status: Chronic Plan: recurrent disease with distant mets to liver and lung disease advanced despite chemotherapy will start Doxil if patient recovers from current hospitalization and her performance status improves will consult palliative care to help clarify goal our RN Barbie had a long talk with patient's daughter Jenni on phone yesterday and she understands that it is likely that we can not get her into remission. Her decreased performance status and ESRD places her at even greater disadvantage. (3) Abdominal pain Status: Chronic (4) Small bowel obstruction Status: Acute Plan: general surgery consulted NG tube to LIWS NPO supportive care Discussed Condition With RN Dr. Bai and he is in agreement, any further orders will follow. Problem Qualifiers (1) Abdominal pain: Qualified Code: R10.84 - Generalized abdominal pain Adán Bai Nov 09, 2016 08:16
[2016-11-09] MEDS: DOCUSATE SODIUM 100 MG CAP PO SCH ×2 (09:00→21:00)
[2016-11-09] MEDS: PARoxetine HCL 20 MG TAB PO SCH ×2 (09:00→09:06)
[2016-11-09] MEDS: FERROUS SULFATE 325 MG (65 MG ELEMENTAL IRON) TAB PO SCH (09:00)
[2016-11-09] MEDS: VITAMIN B CMPLX/VITC/FOLIC AC CAP PO SCH (09:00)
[2016-11-09] MEDS: METOPROLOL TARTRATE 25 MG TAB PO SCH ×2 (09:00→21:00)
[2016-11-09] MEDS: APIXABAN 2.5 MG TABLET PO SCH ×3 (09:00→21:00)
[2016-11-09] MEDS: SODIUM CHLORIDE 0.9% FLUSH 5 ML FLUSH FLUSH SCH ×2 (09:05→21:00)
--- NOTE | 2016-11-09 11:51 | HHI.PR ---
Subjective Remarks abdominal pain, n/v have improved from admission. Objective Vitals Vital Signs Date Time Temp Pulse Resp B/P Pulse Ox O2 Delivery O2 Flow Rate FiO2 11/09/16 08:00 97.0 108 16 96/62 97 11/09/16 03:50 96.8 113 20 103/67 99 11/09/16 01:01 116 18 112/69 94 Room Air 11/09/16 00:19 116 18 112/69 94 11/08/16 23:02 18 11/08/16 18:57 113 111/66 98 Room Air 11/08/16 17:30 114 18 113/72 97 Room Air 11/08/16 17:00 18 98 Room Air 11/08/16 14:17 97.8 126 28 103/62 95 Room Air 11/08/16 11/08/16 11/09/16 15:00 23:00 07:00 Output Total 50 ml Balance -50 ml Output Gastric Drainage Total 50 ml Result Diagram: 11/08/16 1700 11/08/16 1700 Imaging Last 24 hours Impressions Abdomen/Pelvis CT 11/08/16 1524 Signed Impressions: Service Date/Time: November 16:18 - CONCLUSION: 1. The small bowel is quite distended throughout except for the very distal terminal ileum. I do not see a transition point but small bowel is clearly more dilated than in June 2016. The colon is decompressed; it could be a distal small bowel obstruction. 2. Severe hydronephrosis and hydroureter bilaterally with removal of the Double-J ureteral catheters. 3. The left lobe of the liver metastatic lesion is clearly smaller. Luis Mar MD Chest X-Ray 11/08/16 0000 Signed Impressions: Service Date/Time: November 15:39 - CONCLUSION: Moderate- sized left pleural effusion. Right-sided [id number] catheter and left-sided dual-lumen catheter in good position. Luis Mar MD Objective Remarks GENERAL: This is a well-nourished, well-developed patient, in no apparent distress. CARDIOVASCULAR: Regular rate and rhythm without murmurs, gallops, or rubs. RESPIRATORY: Clear to auscultation. Breath sounds equal bilaterally. No wheezes , rales, or rhonchi. GASTROINTESTINAL: Abdomen soft, non-tender, nondistended. decreased bowel sounds , NGT in place MUSCULOSKELETAL: Extremities without clubbing, cyanosis, or edema. NEURO: Alert & Oriented x4 to person, place, time, situation. Moves all ext x4 A/P Problem List: (1) Small bowel obstruction Status: Acute Plan: - NPO - NGT to LWS - obtain KUB - await General Surgery (2) ESRD on hemodialysis Status: Chronic Plan: - HD on Sat, , Sat - Await Nephrology consult (3) Endometrial cancer Status: Chronic Plan: - endometrial cancer stage IIB with metastasis to the lung and liver - Appreciate input from Adult Basic Education Manager Oncology - Agree with Palliative Consult - Hospice would be appropriate. (4) DVT (deep venous thrombosis) Status: Chronic Plan: - Emery Rahman DO Nov 09, 2016 11:51
--- NOTE | 2016-11-09 11:56 | PD.CONS ---
Consult Service Palliative Care Consult Requested By CINTIA Bai Primary Care Physician Gregg Golden Jr, MD Reason for Consultation a. To assist with evaluation and management of symptoms including: pain, fatigue, nausea b. To assist medical decision maker(s) with: better understanding of current medical conditions; weighing benefits/burdens of medical treatment options; making medical treatment decisions. HPI History of Present Illness This is a 61-year-old female with recurrent endometrial cancer , stage IIB. She has been receiving chemotherapy but despite treatment, had worsening metastatic disease to the liver, pulmonary nodules, and worsening omental tumor, intraperitoneal disease and retroperitoneal adenopathy.. She also has ESRD and is getting dialysis on Tuesdays, and Saturdays. According to records, she was started on hemodialysis, last June 2016. Per oncology , she declined transition to comfort measures and start a new regime of Doxil last Saturday, but needed a revision to her AV fistula and treatment was put on hold. Approximately 4 days ago. She had been unable to keep down any food or fluids. She was having increasing generalized abdominal pain and reported her last BM was Saturday. Per Deysi Grayson, she had been having issues w "not keeping things down" since last June. Imaging identified a small bowel obstruction and NG tube was placed to LIWS. This is likely related to the advancing and widespread endometrial cancer. KUB was completed today with no evidence of obstruction or significant dilatation. She states no abdominal pain and resolution of nausea at this time. Palliative care was asked to see this patient to determine goals of care. She has been resistent to accepting comfort measures to this point. She has seen her entry level. I met with Deysi Grayson, who is the [facility] while her mom was a HD. Discussed clinical options. If bowel obstruction does not resolve, the one option could be surgical intervention but she is a very poor candidate as the cause is likely tumor related vs adhesions. Comfort measures / Hospice would be the alternative consideration. Renuka asks about feeding thru a tube. Educated on the work of the small bowel and feeding even with a tube placement. She has a sister Rekha, flying in from [facility] on Saturday and they will talk more about goals of care and code status. Review of Systems Constitutional: COMPLAINS OF: Fatigue, Weight loss (80+ lbs in the last year), Change in appetite Endocrine: DENIES: Heat/cold intolerance, Polydipsia, Polyuria, Polyphagia Ears, nose, mouth, throat: DENIES: Oral lesions, Throat pain Respiratory: COMPLAINS OF: Wheezing, DENIES: Shortness of breath Cardiovascular: COMPLAINS OF: Dyspnea on Exertion, DENIES: Chest pain, Palpitations, Lower Extremity Edema Gastrointestinal: COMPLAINS OF: Abdominal pain, Constipation, DENIES: Nausea Musculoskeletal: COMPLAINS OF: Joint pain, Muscle aches Integumentary: COMPLAINS OF: Excessive dryness, DENIES: Pruritus, Rash Immunologic/Allergic: DENIES: Eczema, Urticaria Neurologic: COMPLAINS OF: Poor Balance, DENIES: Localized weakness, Paresthesias Past Family Social History Coded Allergies: No Known Allergies (Unverified , 11/08/16) Past Medical History * Endometrial cancer complicated by hydronephrosis and peritoneal implants. Patient has had surgery and radiation therapy. * Osteoarthritis * Anxiety * GERD * Hypercholesterolemia * Hypertension * Diabetes * glaucoma * Allergic rhinitis * Cataracts Past Surgical History * Robotic-assisted laparoscopic hysterectomy with bilateral salpingo- oophorectomy and staging, extensive lysis of adhesions for a diagnosis of endometrial cancer stage IIB, grade 2. She completed vaginal brachytherapy under the direction of Dr. Castro on 11/01/2015 * Breast biopsy - R * Caesarean section - X 3 * Tubal ligation * Uterine biopsy in 2014 * Port placement * AV fistula Reported Medications Active Hydrocodone-Acetaminophen 10-325 mg Tab 1 Tab PO Q6HR PRN Pantoprazole (Pantoprazole Sodium) 40 Mg Tab 40 Mg PO DAILY Phenergan (Promethazine HCl) 25 Mg Tab 25 Mg PO Q4H PRN Promethegan Supp (Promethazine HCl) 25 Mg Supp 25 Mg RECTAL DAILY PRN Metoprolol Tartrate 25 Mg Tab 25 Mg PO Q12H Eliquis (Apixaban) 2.5 Mg Tab 2.5 Mg PO BID Ativan (Lorazepam) 0.5 Mg Tab 0.5 Mg PO Q6H PRN Reglan (Metoclopramide HCl) 10 Mg Tab 10 Mg PO TIDAC Renal Vitamin (B-Complex W/ C & Folic Acid) 1 Cap 1 Cap PO DAILY If on dialysis, take after treatment. Paroxetine (Paroxetine HCl) 10 Mg Tab 10 Mg PO DAILY Ondansetron Odt 8 Mg Tab 8 Mg SL Q8H PRN Docusate Sodium 100 Mg Cap 100 Mg PO BID Claritin (Loratadine) 10 Mg Cap 10 Mg PO DAILY Ferrous Sulfate 325 Mg Tab 325 Mg PO DAILY Current Medications Medications (Trade) Dose Ordered Sig/Lalitha Route Start Time Stop Time Status Last Admin (NS Flush) 2 ml UNSCH PRN IVF 11/08/16 15:30 (Eliquis) 2.5 mg BID PO 11/08/16 21:00 11/08/16 21:55 (Nephrocaps) 1 cap DAILY PO 11/09/16 09:00 (Colace) 100 mg BID PO 11/08/16 21:00 (Ferrous Sulfate) 325 mg DAILY PO 11/09/16 09:00 (Ativan) 0.5 mg Q6H PRN PO 11/08/16 20:00 (Lopressor) 25 mg Q12H PO 11/08/16 21:00 (Paxil) 10 mg DAILY PO 11/09/16 09:00 (NS Flush) 2 ml UNSCH PRN FLUSH 11/08/16 19:00 11/08/16 21:35 (NS Flush) 2 ml BID FLUSH 11/08/16 21:00 11/09/16 09:05 (Zofran Inj) 4 mg Q6H PRN IVP 11/08/16 20:00 11/08/16 21:34 (Reglan Inj) 5 mg Q6H PRN IV PUSH 11/08/16 20:00 (Dilaudid Pf Inj) 0.5 mg Q4HR PRN IV 11/08/16 20:00 11/09/16 09:11 (Narcan Inj) 0.4 mg UNSCH PRN IV 11/08/16 19:00 (Protonix Inj) 40 mg Q24H IV PUSH 11/08/16 20:00 11/08/16 21:33 (Pill Splitter) 1 ea UNSCH PRN OTHER 11/08/16 20:00 Family History Family History No family history of breast or gynecologic cancers. Mother had Type 2 DM, PE and at age 67 Brother of stomach cancer at age 37. . Substance Use Tobacco: Never smoked Alcohol: Denies Prescription med abuse: Denies Illicits: Denies Psychosocial History Patient is originally from [place], [place] . She has lived in [facility] for over 50 years. She has an elementary school education. 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 She was once and . She has 3 daughters. She lives with her daughter, Renuka, and Renuka's daughter. Daughters Rekha, and [place], live in [place]. She has 8 grandchildren. Spiritual/Cultural Factors Ms. Ochoa is a member of the [facility] [employer]. Pentecostalism and spirituality are an important part of her life. Spiritual support is provided by her own clergy and zoroastrianism members. Health Care Surrogate: Copy in medical record Health Care Surrogate(s): Renuka Ochoa- daughter- [phone]. Alternate phone [phone] Rekha Duran - [phone]. Alternate phone [phone] Physical Exam Vital Signs Date Time Temp Pulse Resp B/P Pulse Ox O2 Delivery O2 Flow Rate FiO2 11/09/16 08:00 97.0 108 16 96/62 97 11/09/16 03:50 96.8 113 20 103/67 99 11/09/16 01:01 116 18 112/69 94 Room Air 11/09/16 00:19 116 18 112/69 94 11/08/16 23:02 18 11/08/16 18:57 113 111/66 98 Room Air 11/08/16 17:30 114 18 113/72 97 Room Air 11/08/16 17:00 18 98 Room Air 11/08/16 14:17 97.8 126 28 103/62 95 Room Air 11/08/16 11/09/16 19:00 07:00 Output Total 50 ml Balance -50 ml Output Gastric Drainage Total 50 ml Exam CONSTITUTIONAL/GENERAL: This is a thin frail AA female looking older than stated age, denies pain, in no apparent distress. TUBES/LINES/DRAINS: NG tube to low intermittent suction; permacath upper chest wall SKIN: AVF in right upper arm, No jaundice, rashes, or lesions. Skin temperature appropriate. Not diaphoretic. HEAD: Atraumatic. Normocephalic. EYES: Pupils equal and round and reactive. Extraocular motions intact. No scleral icterus. No injection or drainage. ENT: Hearing grossly normal. Throat without visible erythema, exudates, masses, or lesions. NECK: Trachea midline. Supple, nontender. No palpable thyroid enlargement or nodularity. CARDIOVASCULAR: Regular rate and rhythm without murmurs, gallops, or rubs. No JVD. Peripheral pulses symmetric. RESPIRATORY/CHEST: Symmetric, unlabored respirations. Clear to auscultation. Breath sounds equal bilaterally. No wheezes, rales, or rhonchi. GASTROINTESTINAL: Abdomen taut, rounded, nontender, bowel sounds not present. GENITOURINARY: Without palpable bladder distension. MUSCULOSKELETAL: Extremities without clubbing, cyanosis, or edema. No joint tenderness or effusion noted. No calf tenderness. No mottling or clubbing. LYMPHATICS: No palpable cervical or supraclavicular adenopathy. NEUROLOGICAL: Awake and alert x 4, Motor and sensory grossly within normal limits Moves all extremities. PSYCHIATRIC: She is tearful. Denies fear, but states sadness. Diagnostic Tests Laboratory Laboratory Tests Test 11/08/16 17:00 White Blood Count 4.9 TH/MM3 (4.0-11.0) Red Blood Count 3.19 MIL/MM3 (4.00-5.30) Hemoglobin 9.2 GM/DL (11.6-15.3) Hematocrit 29.1 % (35.0-46.0) Mean Corpuscular Volume 91.1 FL (80.0-100.0) Mean Corpuscular Hemoglobin 28.9 PG (27.0-34.0) Mean Corpuscular Hemoglobin 31.7 % Concent (32.0-36.0) Red Cell Distribution Width 25.6 % (11.6-17.2) Platelet Count 165 TH/MM3 (150-450) Mean Platelet Volume 7.3 FL (7.0-11.0) Neutrophils (%) (Auto) 67.3 % (16.0-70.0) Lymphocytes (%) (Auto) 14.0 % (9.0-44.0) Monocytes (%) (Auto) 18.2 % (0.0-8.0) Eosinophils (%) (Auto) 0.1 % (0.0-4.0) Basophils (%) (Auto) 0.4 % (0.0-2.0) Neutrophils # (Auto) 3.3 TH/MM3 (1.8-7.7) Lymphocytes # (Auto) 0.7 TH/MM3 (1.0-4.8) Monocytes # (Auto) 0.9 TH/MM3 (0-0.9) Eosinophils # (Auto) 0.0 TH/MM3 (0-0.4) Basophils # (Auto) 0.0 TH/MM3 (0-0.2) CBC Comment AUTO DIFF Differential Comment AUTO DIFF CONFIRMED Platelet Estimate NORMAL (NORMAL) Platelet Morphology Comment NORMAL (NORMAL) Ovalocytes 1+ (NORMAL) [place] Cells 1+ (NORMAL) Prothrombin Time 13.4 SEC (9.8-11.6) Prothromb Time International 1.2 RATIO Ratio Activated Partial 33.8 SEC Thromboplast Time (24.3-30.1) Sodium Level 141 MEQ/L (136-145) Potassium Level 4.6 MEQ/L (3.5-5.1) Chloride Level 101 MEQ/L (98-107) Carbon Dioxide Level 25.6 MEQ/L (21.0-32.0) Anion Gap 14 MEQ/L (5-15) Blood Urea Nitrogen 52 MG/DL (7-18) Creatinine 7.26 MG/DL (0.50-1.00) Estimat Glomerular Filtration 7 ML/MIN (>89) Rate Random Glucose 77 MG/DL (74-106) Calcium Level 8.4 MG/DL (8.5-10.1) Magnesium Level 2.0 MG/DL (1.5-2.5) Total Bilirubin 0.6 MG/DL (0.2-1.0) Aspartate Amino Transf 18 U/L (15-37) (AST/SGOT) Alanine Aminotransferase 13 U/L (10-53) (ALT/SGPT) Alkaline Phosphatase 128 U/L (45-117) Total Protein 7.3 GM/DL (6.4-8.2) Albumin 2.1 GM/DL (3.4-5.0) Lipase 54 U/L (73-393) Result Diagram: 11/08/16 1700 11/08/16 1700 Imaging Last 72 hours Impressions Abdomen/Pelvis CT 11/08/16 7864 Signed Impressions: Service Date/Time: November 16:18 - CONCLUSION: 1. The small bowel is quite distended throughout except for the very distal terminal ileum. I do not see a transition point but small bowel is clearly more dilated than in June 2016. The colon is decompressed; it could be a distal small bowel obstruction. 2. Severe hydronephrosis and hydroureter bilaterally with removal of the Double-J ureteral catheters. 3. The left lobe of the liver metastatic lesion is clearly smaller. Luis Mar MD Chest X-Ray 11/08/16 0000 Signed Impressions: Service Date/Time: November 15:39 - CONCLUSION: Moderate- sized left pleural effusion. Right-sided Hyiley-x-Lkor catheter and left-sided dual-lumen catheter in good position. Luis Mar MD Procedures Permacath placement, 09/04/16 Patient/Family Conference Present at Family Conference: Met with Daughter Renuka Pearl" to review clinical status. Determined understanding of her mothers status with the cancer. Jenni indicated that she talked w Dr Bai's SENIOR CORPORATE RECRUITER Navneet this morning who indicated that once the issue w the SBO was resolved, they would then start her on Doxil chemo. Jenni was told that the Doxil had a 10% change of possible improvement. To this point chemo has been ineffective and radiology is showing advancing metastatic disease. Relative to the SBO, she remains on NGT to wall suction with symptoms relieved and KUB showed bowel decompression. She is absent of bowel sounds today. The next 24-48 hrs will determine if the bowel will resume function. If so, her diet will be advanced. If not, she is not a surgical candidate, and comfort measures/ hospice would be the only option. Jenni asks about tube feedings.Discussed code status - At this time, she is a FULL CODE with HCS in place. However, in light if her debility, the family may change status. Family Conference Location: Bedside Issues Discussed: * Palliative care role, purpose, approach * Additional medical, psychosocial, and spiritual history * Patients general health, functional status, and cognitive changes in the months leading up to the current hospitalization * Patient/family understanding of the current medical problems * Patient/family understanding of prognosis * Patients goals of care as best understood from advance directives and/or conversations and/or values * Current medical treatment options and benefits/burdens of those options * Likely scenarios comparing ongoing aggressive care with a transition to comfort measures only * Questions answered to the best of my ability * Palliative care contact information provided Assessment and Plan Disease Oriented Problem List: (1) Endometrial cancer Comment: Advancing metastatic disease in spite of chemotherapy (2) Small bowel obstruction (3) ESRD on hemodialysis (4) HTN (hypertension) Symptom Scale: (1) Pain 0-10 Scale: 0 Comment: denies today (2) Nausea 0-10 Scale: 0 Comment: denies today (3) Debility, unspecified Comment: metastatic dx along with ESRD Pertinent Non-Medical Issues Psychosocial: Supportive family with hope for more days. 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 Determined understanding of her mothers status with the cancer. Jenni indicated that she talked w Dr Bai's [employer]IOR CORPORATE RECRUITER Navneet this morning who indicated that once the issue w the SBO was resolved, they would then start her on Doxil chemo. Jenni was told that the Doxil had a 10% change of possible improvement. To this point chemo has been ineffective and radiology is showing advancing metastatic disease. Relative to the SBO, she remains on NGT to wall suction with symptoms relieved and KUB showed bowel decompression. She is absent of bowel sounds today. The next 24-48 hrs will determine if the bowel will resume function. If so, her diet will be advanced. If not, she is not a surgical candidate, and comfort measures/ hospice would be the only option. Jenni asks about tube feedings.Discussed code status - At this time, she is a FULL CODE with HCS in place. However, in light if her debility, the family may change status. Symptoms: Pain due to advancing metastitic abdominal cancer - getting Dilaudid 0.5mg IV Q4prn Nausea - resolved at this time but has NGT and is NPO Debility - this is a very frail woman with metastatic cancer as well as ESRD on HD 3 times a week. She lives w her daughter. Palliative care phone number provided - will follow during hospital stay. Thank you for the opportunity to participate in the care of Ms. Ochoa. Attestation To help prompt me to consider important information that might be impacting today's encounter and assessment, information from prior notes written by myself or my colleagues may have been "brought forward" into today's note. My signature on this note, however, is an attestation that I personally performed the exam, history, and/or decision-making noted today, and, unless otherwise indicated, the interactions with patient, family, and staff as well as the review of records all occurred today. I also attest that the listed assessment and stated plan reflect my best clinical judgment today based on the combination of historical information, prior notes, and today's exam/ interactions. When time spent is documented, it refers only to time spent today by the signer, or if indicated, combined time spent today by collaborating physician/nurse practitioner. Izabel Najera Nov 09, 2016 11:56
--- NOTE | 2016-11-09 12:27 | RADRPT ---
EXAM DATE/TIME: 11/09/2016 11:54 [facility] COMPARISON: ABDOMEN KUB ONLY, August 08, 2016, 2:02. INDICATIONS: Abdominal pain. MEDICAL HISTORY: None. SURGICAL HISTORY: Hysterectomy. Tubal ligation. Dialysis catheter. ENCOUNTER: Subsequent ACUITY: 3 days PAIN SCORE: 5/10 LOCATION: Bilateral abdomen. FINDINGS: Nasogastric tube is coiled in the stomach. Bowel is relatively decompressed with scattered air in co ronnell and small bowel. There is no significant stenosis. There is no evidence for obstruction. CONCLUSION: 1. Nasogastric tube across the GE junction. 2. There is no significant dilatation or obstruction. Lalo Hicks MD FACR on November 09, 2016 at 12:21 Board Certified Radiologist. This report was verified electronically.
[2016-11-09] MEDS ORDERED: SODIUM CHLOR 0.9% 1000 ML INJ 1,000 ML IV PRN ×3 (13:43)
[2016-11-09] MEDS ORDERED: ACETAMINOPHEN 325 MG TAB PO PRN (13:45)
[2016-11-09] MEDS ORDERED: cloNIDine HCL 0.1 MG TAB PO PRN (13:45)
[2016-11-09] MEDS ORDERED: NITROGLYCERIN 0.4 MG SL 25 TABS/BTL SL PRN (13:45)
[2016-11-09] MEDS ORDERED: diphenhydrAMINE HCL 25 MG CAP PO PRN (13:45)
[2016-11-09] MEDS ORDERED: GENTAMICIN SULFATE (DIALYSIS USE ONLY) 20 MG/2 ML VIAL IV PRN (13:45)
[2016-11-09] MEDS ORDERED: ALBUMIN HUMAN 25% 25 GM/100 ML BAGP IV PRN (13:45)
[2016-11-09] MEDS ORDERED: GELATIN 12 MM/7 MM FOAM TOP PRN (13:45)
[2016-11-09] MEDS ORDERED: MANNITOL 12.5 GM/50 ML VIAL IV PRN (13:45)
[2016-11-09] MEDS ORDERED: SODIUM CHLORIDE 0.9% FLUSH 5 ML FLUSH IVF PRN (13:45)
[2016-11-09] MEDS ORDERED: EPOETIN ALFA 10,000 UNITS/ML VIAL IV PRN (13:45)
[2016-11-09] MEDS ORDERED: HEPARIN SODIUM - IV 10,000 UNITS/10 ML VIAL PRN (13:45)
[2016-11-09] MEDS ORDERED: HEPARIN SODIUM - IV 10,000 UNITS/10 ML VIAL IVF PRN (13:45)
--- NOTE | 2016-11-09 13:54 | PD.CONS ---
[facility] Service Nephrology Consult Requested By Reason for Consult ESRD on HD Primary Care Physician Gregg Golden Jr, MD History of Present Illness This is a very unfortunate 61 y/o AAF with a hx of endometrial CA who has no responded to chemotherapy. She has ESRD, was started on dialysis T- since June, follows with Dr. Nava. She has been vomiting for 4 days, came to ER and was diagnosed with SBO. An NG tube was placed and she is NPO. She had dialysis on Saturday; Saturday had short treatment for unknown reasons. She did not have treatment . She has a PermCath. AVF placed right arm recently; it is occluded, vascular is aware and plan to revise in several months. I called to confirm this. Her K is normal, metabolic acidosis is not present. There is some lower extremity edema. We were consulted for management. ( Latonia Arcso) Review of Systems Gastrointestinal: COMPLAINS OF: Abdominal pain, Nausea, Vomiting, DENIES: Diarrhea (Latonia Arcos) Past Family Social History Allergies: Coded Allergies: No Known Allergies (Unverified , 11/08/16) Past Medical History ESRD on HD TTS GERD Endometrial Ca on chemo DVT DJD Past Surgical History WILBERT AVF right arm Reported Medications Hydrocodone-Acetaminophen 10-325 mg Tab 1 Tab PO Q6HR PRN Pantoprazole (Pantoprazole Sodium) 40 Mg Tab 40 Mg PO DAILY Phenergan (Promethazine HCl) 25 Mg Tab 25 Mg PO Q4H PRN Promethegan Supp (Promethazine HCl) 25 Mg Supp 25 Mg RECTAL DAILY PRN Metoprolol Tartrate 25 Mg Tab 25 Mg PO Q12H Eliquis (Apixaban) 2.5 Mg Tab 2.5 Mg PO BID Ativan (Lorazepam) 0.5 Mg Tab 0.5 Mg PO Q6H PRN Reglan (Metoclopramide HCl) 10 Mg Tab 10 Mg PO TIDAC Renal Vitamin (B-Complex W/ C & Folic Acid) 1 Cap 1 Cap PO DAILY If on dialysis, take after treatment. Paroxetine (Paroxetine HCl) 10 Mg Tab 10 Mg PO DAILY Ondansetron Odt 8 Mg Tab 8 Mg SL Q8H PRN Docusate Sodium 100 Mg Cap 100 Mg PO BID Claritin (Loratadine) 10 Mg Cap 10 Mg PO DAILY Ferrous Sulfate 325 Mg Tab 325 Active Ordered Medications Current Medications Medications (Trade) Dose Ordered Sig/Lalitha Route Start Time Stop Time Status Last Admin (NS Flush) 2 ml UNSCH PRN IVF 11/08/16 15:30 (Eliquis) 2.5 mg BID PO 11/08/16 21:00 11/08/16 21:55 (Nephrocaps) 1 cap DAILY PO 11/09/16 09:00 (Colace) 100 mg BID PO 11/08/16 21:00 (Ferrous Sulfate) 325 mg DAILY PO 11/09/16 09:00 (Ativan) 0.5 mg Q6H PRN PO 11/08/16 20:00 (Lopressor) 25 mg Q12H PO 11/08/16 21:00 (Paxil) 10 mg DAILY PO 11/09/16 09:00 (NS Flush) 2 ml UNSCH PRN FLUSH 11/08/16 19:00 11/08/16 21:35 (NS Flush) 2 ml BID FLUSH 11/08/16 21:00 11/09/16 09:05 (Zofran Inj) 4 mg Q6H PRN IVP 11/08/16 20:00 11/08/16 21:34 (Reglan Inj) 5 mg Q6H PRN IV PUSH 11/08/16 20:00 (Dilaudid Pf Inj) 0.5 mg Q4HR PRN IV 11/08/16 20:00 11/09/16 09:11 (Narcan Inj) 0.4 mg UNSCH PRN IV 11/08/16 19:00 (Protonix Inj) 40 mg Q24H IV PUSH 11/08/16 20:00 11/08/16 21:33 Miscellaneous 1 ea 1 ea UNSCH PRN OTHER 11/08/16 20:00 (NS 1000 ml Inj) 1,000 ml @ 0 mls/hr Q0M PRN IV 11/09/16 13:43 UNV Heparin Sodium (Porcine) 8000 units 8,000 units UNSCH PRN IVF 11/09/16 13:45 UNV Sodium Chloride 1,000 ml @ 200 mls/hr Q5H PRN IV 11/09/16 13:43 UNV (NS 1000 ml Inj) 1,000 ml @ 0 mls/hr Q0M PRN IV 11/09/16 13:43 UNV (Mannitol Inj) 12.5 gm UNSCH PRN IV 11/09/16 13:45 UNV (NS Flush) 5 ml UNSCH PRN IVF 11/09/16 13:45 UNV (Gentamicin (Dialysis) Inj) 20 mg UNSCH PRN IV 11/09/16 13:45 UNV Family History No hx of renal disorders Social History Lives with daughter ambulates with walker (Latonia Arcos) Physical Exam Vital Signs Vital Signs Date Time Temp Pulse Resp B/P Pulse Ox O2 Delivery O2 Flow Rate FiO2 11/09/16 08:00 97.0 108 16 96/62 97 11/09/16 03:50 96.8 113 20 103/67 99 11/09/16 01:01 116 18 112/69 94 Room Air 11/09/16 00:19 116 18 112/69 94 11/08/16 23:02 18 11/08/16 18:57 113 111/66 98 Room Air 11/08/16 17:30 114 18 113/72 97 Room Air 11/08/16 17:00 18 98 Room Air 11/08/16 14:17 97.8 126 28 103/62 95 Room Air Physical Exam Elderly frail AAF NG tube draining bilious output lungs diminished, scant rales abd: soft, tender, hypoactive bowel sounds S1/S2, regular rate Ext: trace edema Laboratory Laboratory Tests Test 11/08/16 17:00 White Blood Count 4.9 Red Blood Count 3.19 Hemoglobin 9.2 Hematocrit 29.1 Mean Corpuscular Volume 91.1 Mean Corpuscular Hemoglobin 28.9 Mean Corpuscular Hemoglobin 31.7 Concent Red Cell Distribution Width 25.6 Platelet Count 165 Mean Platelet Volume 7.3 Neutrophils (%) (Auto) 67.3 Lymphocytes (%) (Auto) 14.0 Monocytes (%) (Auto) 18.2 Eosinophils (%) (Auto) 0.1 Basophils (%) (Auto) 0.4 Neutrophils # (Auto) 3.3 Lymphocytes # (Auto) 0.7 Monocytes # (Auto) 0.9 Eosinophils # (Auto) 0.0 Basophils # (Auto) 0.0 CBC Comment AUTO DIFF Differential Comment AUTO DIFF CONFIRMED Platelet Estimate NORMAL Platelet Morphology Comment NORMAL Ovalocytes 1+ Renetta Cells 1+ Prothrombin Time 13.4 Prothromb Time International 1.2 Ratio Activated Partial 33.8 Thromboplast Time Sodium Level 141 Potassium Level 4.6 Chloride Level 101 Carbon Dioxide Level 25.6 Anion Gap 14 Blood Urea Nitrogen 52 Creatinine 7.26 Estimat Glomerular Filtration 7 Rate Random Glucose 77 Calcium Level 8.4 Magnesium Level 2.0 Total Bilirubin 0.6 Aspartate Amino Transf 18 (AST/SGOT) Alanine Aminotransferase 13 (ALT/SGPT) Alkaline Phosphatase 128 Total Protein 7.3 Albumin 2.1 Lipase 54 (Latonia Arcos) Result Diagram: 11/08/16 1700 11/08/16 1700 Imaging Last 72 hours Impressions Abdomen/Pelvis CT 11/08/16 1524 Signed Impressions: Service Date/Time: November 16:18 - CONCLUSION: 1. The small bowel is quite distended throughout except for the very distal terminal ileum. I do not see a transition point but small bowel is clearly more dilated than in June 2016. The colon is decompressed; it could be a distal small bowel obstruction. 2. Severe hydronephrosis and hydroureter bilaterally with removal of the Double-J ureteral catheters. 3. The left lobe of the liver metastatic lesion is clearly smaller. Luis Mar MD Chest X-Ray 11/08/16 0000 Signed Impressions: Service Date/Time: November 15:39 - CONCLUSION: Moderate- sized left pleural effusion. Right-sided [id number] catheter and left-sided dual-lumen catheter in good position. 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 Seen during dialysis. On 3K, UF minimal. Using PermCath. AVF is non functional. Dialysis again tomorrow. Agree with above assessment and plan. (Jose Chavez MD) Latonia Arcos Nov 09, 2016 13:54 Jose Chavez MD Nov 09, 2016 16:02
--- NOTE | 2016-11-09 20:30 | MB ---
cc: CHAZ GUZMAN MD DATE OF CONSULTATION 11/09/[address] Emery Gee REASON FOR CONSULTATION Recurrent metastatic endometrial cancer. REASON FOR ADMISSION Small bowel obstruction, ongoing significant problems, renal failure on dialysis, missed her recent dialysis appointment. She is seen, findings are reviewed in conjunction with our nurse practitioner (Adán Bai). Agree with her findings, assessment and plan of care. A 61-year-old female known to our service with recurrent metastatic endometrial cancer with disease progression despite Taxol, carboplatin chemotherapy. Ongoing issues have been multiple with respect to medical issues including renal failure with ongoing dialysis. She was seen in our office in recent weeks where decision was made to consider single-agent liposomal doxorubicin chemotherapy if her performance status stayed adequate with reduced dosing in timing within 24 hours prior to dialysis in an effort try to minimize toxicity. However, she has not yet been able to start treatment due to some issues with her vascular access catheter and fistula formation. Now she has presented to the emergency room because of some nausea and vomiting that worsened. Prior to admission, she had an underlying element of chronic nausea and reflux vomiting. She has not had any bowel function for 4-5 days. Abdominal film showed dilated loops of small bowel with some air-fluid levels. Nasogastric tube was in place. This was repeated this morning and the bowel pattern looked improved. There was a CAT scan of the abdomen and pelvis that showed a markedly distended small bowel except for the distal terminal ileum. There was no overt transition point. The colon is decompressed, severe hydronephrosis bilaterally, metastatic disease is again noted in the liver. PAST MEDICAL HISTORY, PAST SURGICAL HISTORY, MEDICATIONS, ALLERGIES, REVIEW OF SYSTEMS, FAMILY HISTORY All documented in the chart and are reviewed. There are no new findings to add or alter this. I came to see her in consultation, but she is over in dialysis and this did give me the opportunity to have a lengthy discussion with her daughter, Jenni, explaining again the difficult nature of her situation and this is in followup to the discussion that we recently had in the office. Again, it is reiterated that her performance status and her underlying problems make it difficult for her to feel well enough to take chemotherapy knowing that the disease progressed despite Taxol and carboplatin chemotherapy including extensive disease in the liver. There is not much of any significant chance that additional chemotherapy will suppress the tumor and if there is any suppression it would be a very temporary benefit. We need to honor her wishes and if her performance status ever recovered and she remained steadfast in her wish to consider treatment, we would support that wish if we thought it was not unsafe. However, I emphasized again that I think our best efforts now would be in helping her understand even more clearly the difficult nature of the situation, to maximize comfort care, palliative care and to consider shifting to hospice care when the time is appropriate. Jenni and her sister in working with Harmony Ochoa, are wanting to consider establishing a do not resuscitate and do not intubate order as we also reviewed this scenario where that could be prolonging suffering without resolution of the underlying problems and we have spoken about this before and she and her mom will try to update and clarify their wishes, but they are not yet quite ready as a family to make that decision but are working toward that objective. We explained we will continue to fix anything that is fixable and reverse any problem that is reversible, but the major underlying cancer is not likely to be able to be improved in any significant fashion and we would recommend and be most in favor of palliative care or Hospice. Questions were asked and answered to the best of my capacity. I am sorry I missed her mom at this encounter as she is down getting dialysis, but we will have another opportunity to speak. Grateful for the care provided by Dr. Gee and colleagues. MD ERWIN Azul/ /4:59 PM /8:16 PM
[2016-11-09] MEDS: PANTOPRAZOLE SODIUM 40 MG VIAL IV PUSH SCH (21:30)
--- NOTE | 2016-11-09 23:26 | EKG ---
Date Performed: 11/08/2016 Time Performed: 17:39:29 PTAGE: 61 years EKG: SINUS TACHYCARDIA ABNORMAL RHYTHM ECG PREVIOUS TRACING : 11/05/2016 06.53 DOCTOR: Soraya De Luna Interpretating Date/Time 11/09/2016 23:24:21
[2016-11-10] VITALS (7 sets, daily range): BP systolic 92–120; BP diastolic 64–80; PULSE 93–125; RESP 16–20; TEMP 96.4–98.4; O2SAT 94–99
[2016-11-10] MEDS: METOCLOPRAMIDE HCL 10 MG/2 ML VIAL IV PUSH PRN (03:28)
[2016-11-10] MEDS: HYDROmorphone HCL PF 1 MG/ML VIAL IV PRN ×4 (03:29→21:57)
[2016-11-10] MEDS: SODIUM CHLORIDE 0.9% FLUSH 5 ML FLUSH FLUSH SCH ×2 (08:50→21:43)
[2016-11-10] MEDS: DOCUSATE SODIUM 100 MG CAP PO SCH (08:50)
[2016-11-10] MEDS: METOPROLOL TARTRATE 25 MG TAB PO SCH (08:51)
[2016-11-10] MEDS: VITAMIN B CMPLX/VITC/FOLIC AC CAP PO SCH (08:51)
[2016-11-10] MEDS: APIXABAN 2.5 MG TABLET PO SCH (08:51)
[2016-11-10] MEDS: PARoxetine HCL 20 MG TAB PO SCH (08:51)
[2016-11-10] MEDS: FERROUS SULFATE 325 MG (65 MG ELEMENTAL IRON) TAB PO SCH (08:51)
[2016-11-10] MEDS ORDERED: LORazepam 2 MG/ML VIAL IVP PRN (14:00)
--- NOTE | 2016-11-10 14:03 | HHI.PR ---
Subjective Remarks Abdominal pain & n/v are improved from admission. NO flatus Objective Vitals Vital Signs Date Time Temp Pulse Resp B/P Pulse Ox O2 Delivery O2 Flow Rate FiO2 11/10/16 08:00 96.4 93 16 113/77 99 11/10/16 04:00 96.7 96 16 105/64 96 11/10/16 00:00 98.4 94 18 114/80 94 11/09/16 20:00 96.3 110 18 101/70 98 11/09/16 11/09/16 11/10/16 15:00 23:00 07:00 Intake Total 0 ml 0 ml Output Total 700 ml 225 ml Balance -700 ml -225 ml Intake Oral 0 ml 0 ml Output Gastric Drainage Total 100 ml 225 ml Hemodialysis 600 ml # Voids 1 0 1 # Bowel Movements 0 0 0 Result Diagram: 11/08/16 1700 11/08/16 1700 Imaging Last Impressions Abdomen X-Ray 11/09/16 1147 Signed Impressions: Service Date/Time: Wednesday, November 09, 2016 11:54 - CONCLUSION: 1. Nasogastric tube across the GE junction. 2. There is no significant dilatation or obstruction. Lalo Hicks MD FACR Abdomen/Pelvis CT 11/08/16 1524 Signed Impressions: Service Date/Time: November 16:18 - CONCLUSION: 1. The small bowel is quite distended throughout except for the very distal terminal ileum. I do not see a transition point but small bowel is clearly more dilated than in June 2016. The colon is decompressed; it could be a distal small bowel obstruction. 2. Severe hydronephrosis and hydroureter bilaterally with removal of the Double-J ureteral catheters. 3. The left lobe of the liver metastatic lesion is clearly smaller. Luis Mar MD Chest X-Ray 11/08/16 0000 Signed Impressions: Service Date/Time: November 15:39 - CONCLUSION: Moderate- sized left pleural effusion. Right-sided [id number] catheter and left-sided dual-lumen catheter in good position. Luis Mar MD Objective Remarks GENERAL: This is a well-nourished, well-developed patient, in no apparent distress. CARDIOVASCULAR: Regular rate and rhythm without murmurs, gallops, or rubs. RESPIRATORY: Clear to auscultation. Breath sounds equal bilaterally. No wheezes , rales, or rhonchi. GASTROINTESTINAL: Abdomen soft, non-tender, nondistended. decreased bowel sounds , NGT in place MUSCULOSKELETAL: Extremities without clubbing, cyanosis, or edema. NEURO: Alert & Oriented x4 to person, place, time, situation. Moves all ext x4 A/P Problem List: (1) Small bowel obstruction Status: Acute Plan: - NPO - NGT to LWS - Case d/w General Surgery, Dr. Kimble - consider Gastrograffin study (2) ESRD on hemodialysis Status: Chronic Plan: - comgmt with Nephrology - HD on Sat, , Sat - Pt underwent HD this AM (11/10/16) (3) Endometrial cancer Status: Chronic Plan: - comgmt with Page Makeup System Operator Oncology, Palliative - endometrial cancer stage IIB with metastasis to the lung and liver - Hospice would be appropriate. (4) DVT (deep venous thrombosis) Status: Chronic Plan: - Emery Rahman DO Nov 10, 2016 14:03
--- NOTE | 2016-11-10 14:41 | PD.CONS ---
General Surgery Consult Gen. surgery consultation: The patient is a 61-year-old lady who has advancing metastatic endometrial carcinoma despite chemotherapy. She also has advanced renal failure and has been on dialysis 3 times a week prior to her admission. For the last 6 days she has had symptoms of a small bowel obstruction with nausea and vomiting prior to admission; she has had decreased flatus (none in the last few days); and a paucity of bowel movements. She has minimal pain today and just feels hungry. She denies any flatus. Past medical history/family history/social history/review of systems/medications : All well documented in the remainder of the chart. Examination: Vital Signs Date Time Temp Pulse Resp B/P Pulse Ox O2 Delivery O2 Flow Rate FiO2 11/10/16 12:00 97.0 125 16 92/65 96 11/10/16 08:00 96.4 93 16 113/77 99 11/10/16 04:00 96.7 96 16 105/64 96 11/10/16 00:00 98.4 94 18 114/80 94 11/09/16 20:00 96.3 110 18 101/70 98 HEENT: Unremarkable LUNGS: Clear HEART: Regular rate and rhythm ABDOMEN: Scaphoid with palpable tumor. There is no tympany, however the abdomen is very quiet. 11/09/16 11/09/16 11/10/16 15:00 23:00 07:00 Intake Total 0 ml 0 ml Output Total 700 ml 225 ml Balance -700 ml -225 ml Intake Oral 0 ml 0 ml Output Gastric Drainage Total 100 ml 225 ml Hemodialysis 600 ml # Voids 1 0 1 # Bowel Movements 0 0 0 Last 48 hours Impressions Abdomen X-Ray 11/09/16 1147 Signed Impressions: Service Date/Time: Wednesday, November 09, 2016 11:54 - CONCLUSION: 1. Nasogastric tube across the GE junction. 2. There is no significant dilatation or obstruction. Lalo Hicks MD FACR Abdomen/Pelvis CT 11/08/16 1524 Signed Impressions: Service Date/Time: November 16:18 - CONCLUSION: 1. The small bowel is quite distended throughout except for the very distal terminal ileum. I do not see a transition point but small bowel is clearly more dilated than in June 2016. The colon is decompressed; it could be a distal small bowel obstruction. 2. Severe hydronephrosis and hydroureter bilaterally with removal of the Double-J ureteral catheters. 3. The left lobe of the liver metastatic lesion is clearly smaller. Luis Mar MD Laboratory Tests Test 11/08/16 17:00 White Blood Count 4.9 TH/MM3 Red Blood Count 3.19 MIL/MM3 Hemoglobin 9.2 GM/DL Hematocrit 29.1 % Mean Corpuscular Volume 91.1 FL Mean Corpuscular Hemoglobin 28.9 PG Mean Corpuscular Hemoglobin 31.7 % Concent Red Cell Distribution Width 25.6 % Platelet Count 165 TH/MM3 Mean Platelet Volume 7.3 FL Neutrophils (%) (Auto) 67.3 % Lymphocytes (%) (Auto) 14.0 % Monocytes (%) (Auto) 18.2 % Eosinophils (%) (Auto) 0.1 % Basophils (%) (Auto) 0.4 % Neutrophils # (Auto) 3.3 TH/MM3 Lymphocytes # (Auto) 0.7 TH/MM3 Monocytes # (Auto) 0.9 TH/MM3 Eosinophils # (Auto) 0.0 TH/MM3 Basophils # (Auto) 0.0 TH/MM3 CBC Comment AUTO DIFF Differential Comment AUTO DIFF CONFIRMED Platelet Estimate NORMAL Platelet Morphology Comment NORMAL Ovalocytes 1+ [place] Cells 1+ Prothrombin Time 13.4 SEC Prothromb Time International 1.2 RATIO Ratio Activated Partial 33.8 SEC Thromboplast Time Sodium Level 141 MEQ/L Potassium Level 4.6 MEQ/L Chloride Level 101 MEQ/L Carbon Dioxide Level 25.6 MEQ/L Anion Gap 14 MEQ/L Blood Urea Nitrogen 52 MG/DL Creatinine 7.26 MG/DL Estimat Glomerular Filtration 7 ML/MIN Rate Random Glucose 77 MG/DL Calcium Level 8.4 MG/DL Magnesium Level 2.0 MG/DL Total Bilirubin 0.6 MG/DL Aspartate Amino Transf 18 U/L (AST/SGOT) Alanine Aminotransferase 13 U/L (ALT/SGPT) Alkaline Phosphatase 128 U/L Total Protein 7.3 GM/DL Albumin 2.1 GM/DL Lipase 54 U/L Impression: Unfortunate 61-year-old lady with advanced metastatic endometrial cancer and no renal function; on dialysis. She has evidence of a small bowel obstruction, but no evidence of acute peritonitis. Plan: At this point I would sit with the nasogastric tube in place for now. A Gastrografin small bowel follow-through can be ordered at some point in the next 24-48 hours. I had a long talk with the patient and her family regarding the findings and the plan at this point. They would like to continue with present therapy for now but may be amenable to hospice placement at some point in the next few days. I will follow with you. Dwight Kimble MD Nov 10, 2016 14:41
[2016-11-10] MEDS: PANTOPRAZOLE SODIUM 40 MG VIAL IV PUSH SCH (16:13)
[2016-11-10] MEDS: SODIUM CHLORIDE 0.9% FLUSH 5 ML FLUSH FLUSH PRN (18:18)
--- NOTE | 2016-11-10 18:24 | HHI.NPPN ---
Subjective History of Present Illness 61 year old female with Endometrial cancer ESRD Review of Systems General Constitutional: Fatigue Objective Data Data 11/09/16 11/10/16 19:00 07:00 Intake Total 0 ml Output Total 600 ml 325 ml Balance -600 ml -325 ml Intake Oral 0 ml Output Gastric Drainage Total 325 ml Hemodialysis 600 ml # Voids 1 1 # Bowel Movements 0 0 Vital Signs Date Time Temp Pulse Resp B/P Pulse Ox O2 Delivery O2 Flow Rate FiO2 11/10/16 12:00 97.0 125 16 92/65 96 11/10/16 08:00 96.4 93 16 113/77 99 11/10/16 04:00 96.7 96 16 105/64 96 11/10/16 00:00 98.4 94 18 114/80 94 11/09/16 20:00 96.3 110 18 101/70 98 -: 11/08/16 1700 11/08/16 1700 Physical Exam General Appearance: Well Developed Neck Neck Exam: Neck Supple Pulmonary Resp Exam: Clear Bilaterally Cardiology CV Exam: Regular Gastrointestinal/Abdomen GI Exam: Soft, Non-Tender Extremeties Extremities Exam: No Edema Neurologic Neuro Exam: Alert Assessment/Plan Problem List: (1) ESRD on hemodialysis Plan: dialysis today and T--Sat, she had partial treatment on Saturday has PermCath for HD HD done earlier 1 L UF, T,T,S pt she has non functioning AVF, vascular aware (Jordeniner), no interventions at this time (2) Hypertension Plan: continue medications with hold parameters (3) Endometrial cancer Plan: palliative consulted, 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
[2016-11-10] MEDS: HEPARIN SODIUM - SQ 10,000 UNITS/ML VIAL SQ SCH (21:43)
[2016-11-10] MEDS: ONDANSETRON HCL 4 MG/2 ML VIAL IVP PRN (21:45)
[2016-11-11] VITALS (7 sets, daily range): BP systolic 90–103; BP diastolic 59–66; PULSE 107–128; RESP 15–19; TEMP 96.2–99.1; O2SAT 94–98
[2016-11-11] MEDS: ONDANSETRON HCL 4 MG/2 ML VIAL IVP PRN ×2 (08:54→21:25)
[2016-11-11] MEDS: HYDROmorphone HCL PF 1 MG/ML VIAL IV PRN ×3 (08:55→21:22)
[2016-11-11] MEDS: HEPARIN SODIUM - SQ 10,000 UNITS/ML VIAL SQ SCH ×2 (08:55→21:20)
[2016-11-11] MEDS: METOCLOPRAMIDE HCL 10 MG/2 ML VIAL IV PUSH PRN (11:41)
--- NOTE | 2016-11-11 13:18 | HHI.PR ---
Subjective Subjective Notes Patient feels about the same; moderate pain; no flatus; no BM. She still has occasional emesis. Objective Vitals/I&O Vital Signs Date Time Temp Pulse Resp B/P Pulse Ox O2 Delivery O2 Flow Rate FiO2 11/11/16 08:10 96.2 128 16 90/59 96 11/10/16 20:40 21 11/09/16 01:01 Room Air Cardiovascular: Regular Lungs: Clear Narrative Exam Her abdomen has palpable tumor. Minimal tenderness to palpation but no peritoneal signs. A/P Assessment and Plan Impression: SBO secondary to metastatic tumor; no surgery is indicated Plan: I had a long talk with her and her family; I have strongly urged her to begin the thought process for [facility] and also to stop dialysis. She is familiar with the [facility] and I believe she is going to be willing to do so in the next few days. Dwight Kimble MD Nov 11, 2016 13:18
[2016-11-11] MEDS: ONDANSETRON HCL 4 MG/2 ML VIAL IV PRN (15:08)
[2016-11-11] MEDS: PANTOPRAZOLE SODIUM 40 MG VIAL IV PUSH SCH (15:08)
[2016-11-11] MEDS ORDERED: PADIMATE (CHAPSTICK) 4.5 GM TUBE TOPICAL PRN (15:30)
--- NOTE | 2016-11-11 15:37 | HHI.PR ---
Subjective Remarks Pt c/o continued abdominal discomfort. NO flatus. Pt c/o anxiety and requests that I increase her ativan. Objective Vitals Vital Signs Date Time Temp Pulse Resp B/P Pulse Ox O2 Delivery O2 Flow Rate FiO2 11/11/16 12:15 96.9 111 16 103/63 98 11/11/16 08:10 96.2 128 16 90/59 96 11/11/16 04:32 98.9 121 19 98/62 95 11/11/16 00:35 99.1 107 19 94/66 97 11/10/16 20:40 97 21 11/10/16 20:38 97.6 113 20 120/71 96 11/10/16 16:00 97.6 108 16 115/64 97 11/10/16 11/10/16 11/11/16 15:00 23:00 07:00 Intake Total 240 ml 570 ml 240 ml Output Total 1300 ml 0 ml Balance -1060 ml 570 ml 240 ml Intake Oral 240 ml 570 ml 240 ml Output Urine Total 0 ml Gastric Drainage Total 300 ml Hemodialysis 1000 ml # Voids 1 0 # Bowel Movements 0 0 0 Result Diagram: 11/08/16 1700 11/08/16 1700 Imaging Last Impressions Abdomen X-Ray 11/09/16 1147 Signed Impressions: Service Date/Time: Wednesday, November 09, 2016 11:54 - CONCLUSION: 1. Nasogastric tube across the GE junction. 2. There is no significant dilatation or obstruction. Lalo Hicks MD FACR Abdomen/Pelvis CT 11/08/16 1524 Signed Impressions: Service Date/Time: November 16:18 - CONCLUSION: 1. The small bowel is quite distended throughout except for the very distal terminal ileum. I do not see a transition point but small bowel is clearly more dilated than in June 2016. The colon is decompressed; it could be a distal small bowel obstruction. 2. Severe hydronephrosis and hydroureter bilaterally with removal of the Double-J ureteral catheters. 3. The left lobe of the liver metastatic lesion is clearly smaller. Luis Mar MD Chest X-Ray 11/08/16 0000 Signed Impressions: Service Date/Time: November 15:39 - CONCLUSION: Moderate- sized left pleural effusion. Right-sided Xcymym-a-[id number] catheter and left-sided dual-lumen catheter in good position. Luis Mar MD Objective Remarks GENERAL: This is a well-nourished, well-developed patient, in no apparent distress. CARDIOVASCULAR: Regular rate and rhythm without murmurs, gallops, or rubs. RESPIRATORY: Clear to auscultation. Breath sounds equal bilaterally. No wheezes , rales, or rhonchi. GASTROINTESTINAL: Abdomen soft, non-tender, nondistended. NO bowel sounds, NGT in place MUSCULOSKELETAL: Extremities without clubbing, cyanosis, or edema. NEURO: Alert & Oriented x4 to person, place, time, situation. Moves all ext x4 A/P Problem List: (1) Small bowel obstruction Status: Acute Plan: - NPO - NGT to LWS - Case d/w General Surgery, Dr. Kimble (11/11/16) - Pt NOT a surgical candidate - Pt/family considering Hospice care and request consult for informational meeting. - Family considering stopping HD, but would like to continue thru at least - Pt requests DNR status (2) ESRD on hemodialysis Status: Chronic Plan: - comgmt with Nephrology - HD on Sat, , Sat - Pt underwent HD (11/10/16) - see above (3) Endometrial cancer Status: Chronic Plan: - comgmt with Salesperson Florist Supplies Oncology, Palliative - endometrial cancer stage IIB with metastasis to the lung and liver - Hospice would be appropriate. (4) DVT (deep venous thrombosis) Status: Chronic Plan: - Emery Rahman DO Nov 11, 2016 15:37
--- NOTE | 2016-11-11 16:42 | HHI.NPPN ---
Subjective History of Present Illness 61 year old female with Endometrial cancer ESRD Review of Systems General Constitutional: Fatigue Objective Data Data 11/10/16 11/11/16 19:00 07:00 Intake Total 240 ml 810 ml Output Total 1300 ml 0 ml Balance -1060 ml 810 ml Intake Oral 240 ml 810 ml Output Urine Total 0 ml Gastric Drainage Total 300 ml Hemodialysis 1000 ml # Voids 1 0 # Bowel Movements 0 0 Vital Signs Date Time Temp Pulse Resp B/P Pulse Ox O2 Delivery O2 Flow Rate FiO2 11/11/16 12:15 96.9 111 16 103/63 98 11/11/16 08:10 96.2 128 16 90/59 96 11/11/16 04:32 98.9 121 19 98/62 95 11/11/16 00:35 99.1 107 19 94/66 97 11/10/16 20:40 97 21 11/10/16 20:38 97.6 113 20 120/71 96 -: 11/08/16 1700 11/08/16 1700 Physical Exam General Appearance: Well Developed Neck Neck Exam: Neck Supple Pulmonary Resp Exam: Clear Bilaterally Cardiology CV Exam: Regular Gastrointestinal/Abdomen GI Exam: Soft, Non-Tender Extremeties Extremities Exam: No Edema Neurologic Neuro Exam: Alert Assessment/Plan Problem List: (1) ESRD on hemodialysis Plan: dialysis today and --Sat, she had partial treatment on Saturday has PermCath for HD HD done yesterday 1 L UF, T,T,S pt, consider stopping HD as cancer patient with no improvement in Bowel obstruction she has non functioning AVF, vascular aware (Keren), no interventions at this time Dr. Nava to follow (2) Hypertension Plan: continue medications with hold parameters (3) Endometrial cancer Plan: palliative consulted, she declined transition to comfort measure obstetrician/gynecologist onc following, appreciate recommendations (4) Anemia Plan: epogen with HD (5) Vomiting Plan: confirmed SBO NG tube in place, NPO now surgery to be consulted Pat Hui MD Nov 11, 2016 16:42
[2016-11-11] MEDS: LORazepam 2 MG/ML VIAL IVP PRN (18:36)
[2016-11-11] MEDS: SODIUM CHLORIDE 0.9% FLUSH 5 ML FLUSH FLUSH SCH (21:00)
--- NOTE | 2016-11-12 07:59 | PD.ONC.PN ---
Subjective Subjective Remarks patient is resting in bed no complaints states she still had some nausea/vomiting over the weekend daughter at bedside Objective Data Date Time Temp Pulse Resp B/P Pulse Ox O2 Delivery O2 Flow Rate FiO2 11/11/16 23:30 98.3 115 16 94/64 98 11/11/16 20:20 98.0 117 15 92/62 95 11/11/16 15:15 96.9 118 16 96/62 94 11/11/16 12:15 96.9 111 16 103/63 98 11/11/16 08:10 96.2 128 16 90/59 96 11/12/16 11/12/16 11/12/16 07:00 15:00 23:00 Intake Total 0 ml Output Total 0 ml Balance 0 ml Result Diagram: 11/08/16 1700 11/08/16 1700 Administered Medications Medications (Trade) Dose Ordered Sig/Lalitha Route PRN Reason Start Time Stop Time Status Last Admin Dose Admin IV Flush (NS Flush) 2 ml UNSCH PRN FLUSH FLUSH AFTER USING IV ACCESS 11/08/16 19:00 11/10/16 18:18 IV Flush (NS Flush) 2 ml BID FLUSH 11/08/16 21:00 11/11/16 21:00 Ondansetron HCl (Zofran Inj) 4 mg Q6H PRN IVP NAUSEA OR VOMITING 11/08/16 20:00 11/11/16 21:25 Metoclopramide HCl (Reglan Inj) 5 mg Q6H PRN IV PUSH NAUSEA OR VOMITING 11/08/16 20:00 11/11/16 11:41 Hydromorphone HCl (Dilaudid Pf Inj) 0.5 mg Q4HR PRN IV pain 5-10 11/08/16 20:00 11/11/16 21:22 Heparin Sodium (Porcine) (Heparin Inj) UNSCH PRN .XX WITH DIALYSIS 11/09/16 13:45 11/10/16 11:43 Gentamicin Sulfate (Gentamicin (Dialysis) Inj) 20 mg UNSCH PRN IV WITH DIALYSIS 11/09/16 13:45 11/10/16 11:44 Ondansetron HCl (Zofran Inj) 4 mg UNSCH PRN IV WITH DIALYSIS 11/09/16 13:45 11/11/16 15:08 Epoetin Cody (Epogen Inj) 10,000 units UNSCH PRN IV WITH DIALYSIS 11/09/16 13:45 11/10/16 11:43 Pantoprazole Sodium (Protonix Inj) 40 mg Q24H IV PUSH 11/10/16 16:00 11/11/16 15:08 Heparin Sodium (Porcine) (Heparin Inj) 5,000 units Q12HR SQ 11/10/16 21:00 11/11/16 21:20 Lorazepam (Ativan Inj) 0.5 mg Q6HR PRN IVP ANXIETY 11/11/16 18:00 11/11/16 18:36 Objective Remarks GENERAL: frail, well-developed patient. SKIN: Warm and dry. HEAD: Normocephalic. EYES: No scleral icterus. No injection or drainage. NECK: Supple, trachea midline CARDIOVASCULAR: Regular rate and rhythm RESPIRATORY: Breath sounds equal bilaterally. NEUROLOGICAL: Awake, alert, and oriented x3. PSYCHIATRIC: Appropriate mood and affect; insight and judgment normal. Assessment/Plan Problem List: (1) ESRD on hemodialysis Status: Chronic Plan: family wishes to continue dialysis through 11/13/16 and is considering Hospice care (2) Small bowel obstruction Status: Acute Plan: continue NG tube to [facility] supportive care (3) Endometrial cancer Status: Chronic Plan: despite recent treatment Mrs. Ochoa has had advancement of disease she is a poor candidate for continued IV chemo d/t decreased performance status and ESRD currently Hospice appropriate and they have been consulted DNR/DNI Adán Bai Nov 12, 2016 07:59
[2016-11-12 08:00] VITALS: BP 95/64; PULSE 118; RESP 18; TEMP 97.1; O2SAT 99
[2016-11-12] MEDS: LORazepam 2 MG/ML VIAL IVP PRN ×3 (08:55→23:32)
[2016-11-12] MEDS: VITAMIN B CMPLX/VITC/FOLIC AC CAP PO SCH (09:00)
[2016-11-12] MEDS: HEPARIN SODIUM - SQ 10,000 UNITS/ML VIAL SQ SCH ×2 (09:04→22:23)
[2016-11-12] MEDS: SODIUM CHLORIDE 0.9% FLUSH 5 ML FLUSH FLUSH SCH ×2 (09:05→22:25)
--- NOTE | 2016-11-12 10:24 | RADRPT ---
EXAM DATE/TIME: 11/12/2016 09:54 [place] COMPARISON: CT ABDOMEN & PELVIS W/O CONTRAST, November 08, 2016, 16:18. ABDOMEN KUB ONLY, November 09, 2016, 11:54. INDICATIONS : Obstruction. MEDICAL HISTORY : None. SURGICAL HISTORY : Hysterectomy. Tubal ligation. Dialysis catheter ENCOUNTER: Subsequent ACUITY: 4 - 6 days PAIN SCORE: 0/10 LOCATION: Bilateral abdomen. FINDINGS: A portable supine frontal view of the abdomen demonstrates air within bowel in a nonobstructive patte rn. Nasogastric tube is looped in the stomach. No organomegaly abnormal mass effect is appreciated. N o concerning calcifications are seen. There are degenerative changes throughout the visualized spine. There is a persistent left pleural effusion. CONCLUSION: 1. There are no imaging findings to indicate small bowel obstruction. However, the CT from 11/08/2016 d ocumented fluid-filled dilated loops of small bowel. Fluid-filled loops of small bowel can be occult on plain film imaging. 2. Persistent left pleural effusion. Srinivas Moore MD on November 12, 2016 at 10:21 Board Certified Radiologist. This report was verified electronically.
--- NOTE | 2016-11-12 10:40 | HHI.NPPN ---
Subjective History of Present Illness 61 y/o AAF with a hx of endometrial CA who has no responded to chemotherapy. She has ESRD, was started on dialysis T--Sat since June. Patient has been following with MANAGER INSIDE/Oncology. Additional Remarks Patient is alert, no SOB, not in distress. Review of Systems General Constitutional: Fatigue, Weight Change Gastrointestinal Gastrointestinal: Nausea & Vomiting Objective Data Data 11/11/16 11/12/16 19:00 07:00 Intake Total 400 ml 0 ml Output Total 320 ml Balance 80 ml 0 ml Intake Oral 400 ml 0 ml Gastric Drainage Total 320 ml # Voids 1 1 # Bowel Movements 0 1 Vital Signs Date Time Temp Pulse Resp B/P Pulse Ox O2 Delivery O2 Flow Rate FiO2 11/12/16 08:00 97.1 118 18 95/64 99 11/11/16 23:30 98.3 115 16 94/64 98 11/11/16 20:20 98.0 117 15 92/62 95 11/11/16 15:15 96.9 118 16 96/62 94 11/11/16 12:15 96.9 111 16 103/63 98 -: 11/08/16 1700 11/08/16 1700 Physical Exam General Appearance: No Acute Distress, Comfortable Neck Neck Exam: Neck Supple Pulmonary Resp Exam: Breath Sounds Equal, No Distress, Decreased Bases Cardiology CV Exam: Regular Gastrointestinal/Abdomen GI Exam: Soft, Non-Tender, Distended Extremeties Extremities Exam: Trace Edema Neurologic Neuro Exam: Alert, Awake Psychiatric Psych Exam: Appropriate Responses Assessment/Plan Problem List: (1) ESRD on hemodialysis Plan: dialysis today and -, she had partial treatment on Saturday has PermCath for HD Patient has clotted AVF and any intervention was held by the Vascular due to her overall condition. I discuss with daughter she is considering the Hospice, but want to continue HD for now. Will follow. (2) Hypertension Plan: continue medications with hold parameters (3) Endometrial cancer Plan: palliative consulted, she declined transition to comfort measure utilization supervisor onc following, appreciate recommendations (4) Anemia Plan: epogen with HD (5) Vomiting Plan: confirmed SBO NG tube in place, NPO now surgery to be consulted Irvin Nava MD Nov 12, 2016 10:40
--- NOTE | 2016-11-12 10:54 | HHI.PR ---
Subjective Remarks No new complaints. Afebrile Pt had out about 320mL overnight from NGT Objective Vitals Vital Signs Date Time Temp Pulse Resp B/P Pulse Ox O2 Delivery O2 Flow Rate FiO2 11/12/16 08:00 97.1 118 18 95/64 99 11/11/16 23:30 98.3 115 16 94/64 98 11/11/16 20:20 98.0 117 15 92/62 95 11/11/16 15:15 96.9 118 16 96/62 94 11/11/16 12:15 96.9 111 16 103/63 98 11/11/16 11/11/16 11/12/16 15:00 23:00 07:00 Intake Total 400 ml 0 ml Output Total 320 ml Balance 80 ml 0 ml Intake Oral 400 ml 0 ml Gastric Drainage Total 320 ml # Voids 1 1 # Bowel Movements 0 1 Result Diagram: 11/08/16 1700 11/08/16 1700 Imaging Last Impressions Abdomen X-Ray 11/09/16 1147 Signed Impressions: Service Date/Time: Wednesday, November 09, 2016 11:54 - CONCLUSION: 1. Nasogastric tube across the GE junction. 2. There is no significant dilatation or obstruction. Lalo Hicks MD FACR Abdomen/Pelvis CT 11/08/16 1524 Signed Impressions: Service Date/Time: November 16:18 - CONCLUSION: 1. The small bowel is quite distended throughout except for the very distal terminal ileum. I do not see a transition point but small bowel is clearly more dilated than in June 2016. The colon is decompressed; it could be a distal small bowel obstruction. 2. Severe hydronephrosis and hydroureter bilaterally with removal of the Double-J ureteral catheters. 3. The left lobe of the liver metastatic lesion is clearly smaller. Luis Mar MD Chest X-Ray 11/08/16 0000 Signed Impressions: Service Date/Time: November 15:39 - CONCLUSION: Moderate- sized left pleural effusion. Right-sided Ybqesi-[id number] catheter and left-sided dual-lumen catheter in good position. Luis Mar MD Objective Remarks General: NAD, AAOx3 Chest: CTA Cardiac: Regular Abd: No bowel sounds, soft nontender Ext: No edema A/P Problem List: (1) Small bowel obstruction Status: Acute Plan: - NPO - NGT to LWS - Per GS notes, pt is NOT a surgical candidate - Pt/family considering Hospice care and request consult for informational meeting. - Family considering stopping HD, but would like to continue thru at least - Pt requests DNR status (2) ESRD on hemodialysis Status: Chronic Plan: - comgmt with Nephrology - HD on Sat, , Sat - Pt underwent HD (11/10/16) - see above (3) Endometrial cancer Status: Chronic Plan: - comgmt with [employer] Director Oncology, Palliative - endometrial cancer stage IIB with metastasis to the lung and liver - Hospice would be appropriate. (4) DVT (deep venous thrombosis) Status: Chronic Plan: - Eluis Assessment and Plan Patient examined. Assessment and plan formulated with Merced Hinojosa PA-C. I agree with the above. Long talk with family and daughter. they are considering hospice. pt had metastatic endometrial ca. Now with sbo and recommended for hospice. esrd with HD for tomorrow. await hospice meeting with family. daughter open to care center if pt/family would agree. Merced Hinojosa Nov 12, 2016 10:54 Ted Blake MD Nov 12, 2016 11:01
[2016-11-12 12:00] VITALS: BP 102/67; PULSE 112; RESP 16; TEMP 95.6; O2SAT 96
[2016-11-12] MEDS: ONDANSETRON HCL 4 MG/2 ML VIAL IVP PRN (12:30)
[2016-11-12] MEDS: HYDROmorphone HCL PF 1 MG/ML VIAL IV PRN ×2 (12:33→22:23)
--- NOTE | 2016-11-12 15:55 | HHI.PR ---
Subjective Subjective Notes The patient feels the same as previously. She has very little pain, which has been controlled. She has had no further emesis. Objective Vitals/I&O Vital Signs Date Time Temp Pulse Resp B/P Pulse Ox O2 Delivery O2 Flow Rate FiO2 11/12/16 12:00 95.6 112 16 102/67 96 11/10/16 20:40 21 11/09/16 01:01 Room Air Radiology Last 24 hours Impressions Abdomen X-Ray 11/12/16 0800 Signed Impressions: Service Date/Time: Saturday, November 12, 2016 09:54 - CONCLUSION: 1. There are no imaging findings to indicate small bowel obstruction. However, the CT from 11/08/2016 documented fluid-filled dilated loops of small bowel. Fluid-filled loops of small bowel can be occult on plain film imaging. 2. Persistent left pleural effusion. Srinivas Moore MD Cardiovascular: Regular Lungs: Clear Narrative Exam Her abdomen has palpable tumor; no other new findings are noted. A/P Assessment and Plan Impression: SBO secondary to metastatic tumor; no surgery is indicated Plan: Once again, I talked with her and her family. I believe they are moving toward excepting intervention with hospice, although she has expressed the desire to be at home. Hopefully arrangements can be made in the next several days. Dwight Kimble MD Nov 12, 2016 15:55
[2016-11-12 16:00] VITALS: BP 97/64; PULSE 111; RESP 17; TEMP 95.9; O2SAT 96
[2016-11-12] MEDS: PANTOPRAZOLE SODIUM 40 MG VIAL IV PUSH SCH (16:03)
--- NOTE | 2016-11-12 16:50 | HHI.HCPN ---
Spoke with CINTIA Young (BUSINESS INTELLIGENCE ARCHITECT Oncology) and reviewed records. It appears hospice has been consulted and some family may be struggling with this decision. I called daughterJenni to request family meeting to assist with further clarification of treatment goals. Plan to meet with Harmony and her daughters 11/13/16 at 11am. FIDEL VALDEZ Nov 12, 2016 16:50
[2016-11-12 20:00] VITALS: BP 93/59; PULSE 116; RESP 16; TEMP 96.9; O2SAT 99
[2016-11-12] MEDS: ONDANSETRON HCL 4 MG/2 ML VIAL IV PRN (22:23)
[2016-11-13] VITALS: BP 94/63; PULSE 112; RESP 16; TEMP 96.7; O2SAT 98
[2016-11-13] MEDS: HYDROmorphone HCL PF 1 MG/ML VIAL IV PRN ×3 (03:55→22:29)
[2016-11-13] MEDS: ONDANSETRON HCL 4 MG/2 ML VIAL IVP PRN ×4 (03:56→22:30)
[2016-11-13 04:00] VITALS: BP 101/70; PULSE 115; RESP 17; TEMP 96.4; O2SAT 96
[2016-11-13 08:00] VITALS: BP 101/65; PULSE 113; RESP 17; TEMP 96.1; O2SAT 93
[2016-11-13] MEDS: VITAMIN B CMPLX/VITC/FOLIC AC CAP PO SCH (09:00)
[2016-11-13] MEDS: HEPARIN SODIUM - SQ 10,000 UNITS/ML VIAL SQ SCH ×2 (09:12→22:30)
[2016-11-13] MEDS: SODIUM CHLORIDE 0.9% FLUSH 5 ML FLUSH FLUSH SCH ×2 (09:13→22:30)
[2016-11-13] MEDS: LORazepam 2 MG/ML VIAL IVP PRN (09:13)
--- NOTE | 2016-11-13 09:17 | HHI.PR ---
Subjective Remarks anxiety and pain seem under control family requesting some ivf and HD today. Objective Vitals nad ngt heart reg lung cta abd no bs/firm ext no ext no edema Vital Signs Date Time Temp Pulse Resp B/P Pulse Ox O2 Delivery O2 Flow Rate FiO2 11/13/16 04:00 96.4 115 17 101/70 96 11/13/16 04:00 Room Air 11/13/16 00:00 Room Air 11/13/16 00:00 96.7 112 16 94/63 98 11/12/16 20:00 Room Air 11/12/16 20:00 96.9 116 16 93/59 99 11/12/16 16:00 95.9 111 17 97/64 96 11/12/16 12:00 95.6 112 16 102/67 96 11/12/16 11/12/16 11/13/16 15:00 23:00 07:00 Intake Total 120 ml 0 ml 0 ml Output Total 125 ml 50 ml 50 ml Balance -5 ml -50 ml -50 ml Intake Oral 120 ml 0 ml 0 ml Output Urine Total 25 ml Gastric Drainage Total 100 ml 50 ml 50 ml # Voids 1 1 1 # Bowel Movements 0 0 1 Imaging Last Impressions Abdomen X-Ray 11/09/16 1147 Signed Impressions: Service Date/Time: Wednesday, November 09, 2016 11:54 - CONCLUSION: 1. Nasogastric tube across the GE junction. 2. There is no significant dilatation or obstruction. Lalo Hicks MD FACR Abdomen/Pelvis CT 11/08/16 1524 Signed Impressions: Service Date/Time: November 16:18 - CONCLUSION: 1. The small bowel is quite distended throughout except for the very distal terminal ileum. I do not see a transition point but small bowel is clearly more dilated than in June 2016. The colon is decompressed; it could be a distal small bowel obstruction. 2. Severe hydronephrosis and hydroureter bilaterally with removal of the Double-J ureteral catheters. 3. The left lobe of the liver metastatic lesion is clearly smaller. Luis Mar MD Chest X-Ray 11/08/16 0000 Signed Impressions: Service Date/Time: November 15:39 - CONCLUSION: Moderate- sized left pleural effusion. Right-sided [id number] catheter and left-sided dual-lumen catheter in good position. Luis Mar MD A/P Problem List: (1) Small bowel obstruction Status: Acute Plan: -Metastatic endometrial ca. bowel obstruction related to tumor. - NPO - NGT to LWS Pt seen by pit tanner/onc and general surgery. No surgery indicated. Further chemo not felt to improve quality or length of life Pt and family to meet with palliative care today. I relayed my recommendation of hospice to patient and 2 daughters in room..but apparently the 3rd daughter having more trouble accepting hospice pain and anxiety meds prn. ivf. HD today. dnr (2) ESRD on hemodialysis Status: Chronic Plan: - comgmt with Nephrology - HD on Sat, , Sat - Pt underwent HD (11/10/16) - see above (3) Endometrial cancer Status: Chronic Plan: - comgmt with Public Address System Mechanic Oncology, Palliative - endometrial cancer stage IIB with metastasis to the lung and liver - Hospice would be appropriate. (4) DVT (deep venous thrombosis) Status: Chronic Plan: - Ted Newton MD Nov 13, 2016 09:17
--- NOTE | 2016-11-13 09:19 | MB ---
cc: OLAMIDE DORAN M.D., EDWARD B. DO JUMANI, ABDUL Q. MD MOLPUS,RUI MCGUIRE MD, MD MCNISH,DAVID Barber MD DATE OF CONSULTATION 11/13/2016 DIAGNOSIS Recurrent metastatic endometrial cancer. SECONDARY DIAGNOSIS Renal failure on dialysis. REASON FOR ADMISSION Small bowel obstruction, failure to thrive. She is seen now in followup. There is a family member in the room. I had missed her on previous efforts to see her as she was off the ojeda. She reports that she is comfortable. She has a nasogastric tube in place, but has had some flatus and some bowel movements. Reports no nausea. Currently she reports that she is comfortable and is resting. On exam, her abdomen is tense, distended, but nonacute. She understands the plan to further meet to have a family meeting with the palliative care service. I believe that is scheduled today at 11 to be directed by Yajaira Sheldon who has known the patient for a period of time and we are making collective efforts to answer questions and to encourage changing her status as has been done to do not resuscitate, do not intubate and to shift to palliative care, Hospice care as she has multiple underlying irreversible problems. I again discussed in brief the underlying cancer problem that progressed despite Taxol and carboplatin chemotherapy including disease in the liver and the lungs. Her performance status has precluded any attempts of additional chemotherapy and the improbability that additional chemotherapy would provide any significant or sustained response. She seems more in line with and accepting of maximizing comfort care and I hope that the meeting today goes well. She states that she is getting good care and does not need anything else for comfort. MD ERWIN Azul/JAYCE /8:13 AM /9:12 AM
[2016-11-13] MEDS: SODIUM CHLOR 0.9% 1000 ML INJ 1,000 ML IV SCH ×2 (09:24→22:31)
--- NOTE | 2016-11-13 10:30 | HHI.NPPN ---
Subjective History of Present Illness 61 y/o AAF with a hx of endometrial CA who has no responded to chemotherapy. She has ESRD, was started on dialysis T--Sat since June. Patient has been following with PROGRAMMING SPECIALIST/Oncology. Additional Remarks Patient is alert, no SOB, on room air, with NGT with suction. Review of Systems General Constitutional: Fatigue, Weight Change Gastrointestinal Gastrointestinal: Nausea & Vomiting Objective Data Data 11/12/16 11/13/16 19:00 07:00 Intake Total 120 ml 0 ml Output Total 125 ml 100 ml Balance -5 ml -100 ml Intake Oral 120 ml 0 ml Output Urine Total 25 ml Gastric Drainage Total 100 ml 100 ml # Voids 1 2 # Bowel Movements 0 1 Vital Signs Date Time Temp Pulse Resp B/P Pulse Ox O2 Delivery O2 Flow Rate FiO2 11/13/16 08:00 96.1 113 17 101/65 93 11/13/16 04:00 96.4 115 17 101/70 96 11/13/16 04:00 Room Air 11/13/16 00:00 Room Air 11/13/16 00:00 96.7 112 16 94/63 98 11/12/16 20:00 Room Air 11/12/16 20:00 96.9 116 16 93/59 99 11/12/16 16:00 95.9 111 17 97/64 96 11/12/16 12:00 95.6 112 16 102/67 96 Physical Exam General Appearance: No Acute Distress, Comfortable Neck Neck Exam: Neck Supple Pulmonary Resp Exam: Breath Sounds Equal, No Distress, Decreased Bases Cardiology CV Exam: Regular Gastrointestinal/Abdomen GI Exam: Soft, Non-Tender, Distended Extremeties Extremities Exam: Trace Edema Neurologic Neuro Exam: Alert, Awake Psychiatric Psych Exam: Appropriate Responses Assessment/Plan Problem List: (1) ESRD on hemodialysis Plan: dialysis today and T-, she had partial treatment on Saturday. has PermCath for HD Patient has clotted AVF and any intervention was held by the Vascular due to her overall condition. I discuss with daughter she is considering the Hospice, As per daughter, patient want to continue HD. They have meeting with Hospice at 11 AM today, will wait for the meeting and decision. Oncology consult noted. (2) Hypertension Plan: continue medications with hold parameters (3) Endometrial cancer Plan: palliative consulted, she declined transition to comfort measure cardiology nurse onc following, appreciate recommendations (4) Anemia Plan: epogen with HD (5) Vomiting Plan: confirmed SBO NG tube in place, NPO now surgery to be consulted Irvin Nava MD Nov 13, 2016 10:29
[2016-11-13 12:00] VITALS: BP 99/65; PULSE 107; RESP 18; TEMP 96.3; O2SAT 95
--- NOTE | 2016-11-13 12:29 | HHI.HCPN ---
Reason for visit a. To assist with evaluation and management of symptoms including: pain, fatigue, nausea. b. To assist medical decision maker(s) with: better understanding of current medical conditions; weighing benefits/burdens of medical treatment options; making medical treatment decisions. . Subjective/Interval History Patient seen and examined with 3 daughters at bedside. Patient awakens easily. She is alert and oriented. She has insight to her disease and overall prognosis. Patient reports pain in her throat and abdomen. She rates are pain currently 8 out of 10. She reports pain is intermittent, diffuse throughout the abdomen. She reports with current PRN Dilaudid 0.5 mg every 4 hours PRN relieves her pain adequately. She has had 3 doses in the past 24 hours. She denies anxiety during my visit, has lorazepam 0.5 mg IV Q6 hours PRN. She has used for doses in the past 24 hours. This may also be helping with her nausea. Afebrile. Tachycardic. Otherwise vital signs stable. LBM 11/13/16. NG tube remains in place to LIWS. 11/12/16 abdominal x-ray revealed no imaging findings to suggest small bowel obstruction, persistent left pleural effusion. Family reports patient has been having liquids. Intermittent cough with phlegm production, family indicates this does not appear to be nausea/vomiting. Patient denies nausea. Sodium 132, BUN 69, creatinine 8.95, GFR 5. Last hemodialysis 11/10/16, patient has had some difficulty tolerating complete dialysis treatments. . Family/friend interactions Palliative care Met with patient and her 3 daughters at bedside. Reviewed endometrial cancer and end-stage renal disease history. Discussed disease process, likely trajectory of disease progression, prognosis and treatment options. At this time the patient does not feel ready to discontinue hemodialysis. She and her family clearly understand that she has a terminal condition. She would like to continue hemodialysis for now. I reviewed that she has not been able to tolerate hemodialysis at times and that potentially her body will not be able to to continue to tolerate dialysis machine and her family feel that if dialysis is not able to be tolerated this will be the sign that it is time to transition to comfort focused care. She and family understand that chemotherapy will not likely be an option given her poor nutritional and functional status, disease progression despite first-line treatment and given underlying end-stage renal disease and the difficulties this poses in relation to chemotherapy administration. Patient hopes to go home in the future, she and her family have concerns as to whether or not she would be able to tolerate dialysis upon discharge. They are all open to transition to comfort focused care with hospice support, they all feel that they will know when this is time. Patient is not yet ready to transition to comfort with hospice. I suspect in the coming days/weeks her condition will change and family will be ready. Patient and family are all in agreement with the plan for palliative care to continue to follow. They are very appreciative of the time spent in conversation today. Palliative care number provided. . Advance Directives Health Care Surrogate: Copy in medical record Advance Directive Specifics Health Care Surrogate(s): Renuka Ochoa- daughter- [phone]. Alternate phone [phone] Rekha Duran - [phone]. Alternate phone [phone] Significant change in goals: NO CODE. Patient desires continued aggressive care including hemodialysis at this time. Open to transition to comfort focused care with hospice support should she have any further setbacks her decline, or should she not be able to tolerate dialysis in the future. [place] do not resuscitate order completed the patient to take home on discharge. . Objective Vital Signs Date Time Temp Pulse Resp B/P Pulse Ox O2 Delivery O2 Flow Rate FiO2 11/13/16 12:00 96.3 107 18 99/65 95 11/13/16 08:00 96.1 113 17 101/65 93 11/13/16 04:00 96.4 115 17 101/70 96 11/13/16 04:00 Room Air 11/13/16 00:00 Room Air 11/13/16 00:00 96.7 112 16 94/63 98 11/12/16 20:00 Room Air 11/12/16 20:00 96.9 116 16 93/59 99 11/12/16 16:00 95.9 111 17 97/64 96 Intake & Output 11/13/16 11/13/16 07:00 19:00 Intake Total 0 ml Output Total 100 ml Balance -100 ml Intake Oral 0 ml Gastric Drainage Total 100 ml # Voids 2 # Bowel Movements 1 Physical Exam CONSTITUTIONAL/GENERAL: This is a thin frail AA female looking older than stated age, denies pain, in no apparent distress. TUBES/LINES/DRAINS: NG tube to low intermittent suction; permacath upper chest wall SKIN: AVF in right upper arm, No jaundice, rashes, or lesions. Skin temperature appropriate. Not diaphoretic. HEAD: Atraumatic. Normocephalic. EYES: Pupils equal and round and reactive. Extraocular motions intact. No scleral icterus. No injection or drainage. ENT: Hearing grossly normal. Throat without visible erythema, exudates, masses, or lesions. NECK: Trachea midline. Supple, nontender. No palpable thyroid enlargement or nodularity. CARDIOVASCULAR: Regular rate and rhythm without murmurs, gallops, or rubs. No JVD. Peripheral pulses symmetric. RESPIRATORY/CHEST: Symmetric, unlabored respirations. Clear to auscultation. Breath sounds equal bilaterally. No wheezes, rales, or rhonchi. GASTROINTESTINAL: Abdomen taut, rounded, nontender, bowel sounds not present. GENITOURINARY: Without palpable bladder distension. MUSCULOSKELETAL: Extremities without clubbing, cyanosis, or edema. No joint tenderness or effusion noted. No calf tenderness. No mottling or clubbing. LYMPHATICS: No palpable cervical or supraclavicular adenopathy. NEUROLOGICAL: Awake and alert x 4, Motor and sensory grossly within normal limits Moves all extremities. PSYCHIATRIC: She is tearful. Denies fear, but states sadness. Diagnostic Tests Imaging Last Impressions Abdomen X-Ray 11/12/16 0800 Signed Impressions: Service Date/Time: Saturday, November 12, 2016 09:54 - CONCLUSION: 1. There are no imaging findings to indicate small bowel obstruction. However, the CT from 11/08/2016 documented fluid-filled dilated loops of small bowel. Fluid-filled loops of small bowel can be occult on plain film imaging. 2. Persistent left pleural effusion. Srinivas Moore MD Abdomen/Pelvis CT 11/08/16 1524 Signed Impressions: Service Date/Time: November 16:18 - CONCLUSION: 1. The small bowel is quite distended throughout except for the very distal terminal ileum. I do not see a transition point but small bowel is clearly more dilated than in June 2016. The colon is decompressed; it could be a distal small bowel obstruction. 2. Severe hydronephrosis and hydroureter bilaterally with removal of the Double-J ureteral catheters. 3. The left lobe of the liver metastatic lesion is clearly smaller. Luis Mar MD Chest X-Ray 11/08/16 0000 Signed Impressions: Service Date/Time: November 15:39 - CONCLUSION: Moderate- sized left pleural effusion. Right-sided Kaicii-q-Oaql catheter and left-sided dual-lumen catheter in good position. Luis Mar MD . Procedures Permacath placement, 09/04/16 Assessment and Plan Disease Oriented Problem List: (1) Endometrial cancer Comment: Advancing metastatic disease in spite of chemotherapy (2) Small bowel obstruction (3) ESRD on hemodialysis (4) HTN (hypertension) Symptom Scale: (1) Pain 0-10 Scale: 8 Comment: Intermittent abdominal pain currently rates 8 out of 10 feels current PRN Dilaudid is adequate to control her pain. (2) Nausea 0-10 Scale: 0 Comment: denies today (3) Debility, unspecified Comment: metastatic dx along with ESRD Pertinent Non-Medical Issues Psychosocial: Supportive family with hope for more days. Spiritual: Methodist - involved with the gnosticism Legal: Ethical issues impacting care: Important Contacts Renuka Ochoa (daughter) [phone] Prognosis Ms. ochoa is a 61-year-old female with metastatic endometrial cancer with Mets to liver, lung, adenopathy and omental disease, she also has end-stage renal disease on hemodialysis. Overall prognosis is poor, life expectancy likely 6 months or less. Hospice appropriate if goals are comfort oriented. . Code Status: No Code Plan * Patient is currently capacitated to make her own decisions. Patient has completed designation of HCS form naming her daughters, Jneni and/or Rekha as primary HCS. * NO CODE. [place] do not resuscitate order completed on 11/13/16 and placed on chart to go with home with patient upon discharge. * Met with patient and her daughters. Patient desires to continue aggressive care for now. She has a good understanding of overall poor prognosis. She will likely transition to comfort in the coming day(s) or weeks. She does not want to stop dialysis yet. She verbalizes that she would stop if continues to not tolerate HD. Open to hospice if further setbacks or decline. * She is feeling hungry, reports bowels are moving, asking about possible clamping NG tube to see if she can tolerate liquids. Will discuss with Dr. Kimble or Dr. Blake. * SYMPTOMS: Pain due to advancing metastatic abdominal cancer - PRN Dilaudid appears adequate control pain per patient's report today. Nausea - improving, bowels no moving, NG tube remains in place. Debility - this is a very frail woman with metastatic cancer as well as ESRD on HD 3 times a week. She lives w her daughter. * Palliative care number provided. * Palliative care will continue to follow to assist with clarification of goals. . Time Spent Total Floor Time (mins): 75 Face to Face Time (mins): 60 >50% Counseling/Coord of Care: Yes Attestation To help prompt me to consider important information that might be impacting today's encounter and assessment, information from prior notes written by myself or my colleagues may have been "brought forward" into today's note. My signature on this note, however, is an attestation that I personally performed the exam, history, and/or decision-making noted today, and, unless otherwise indicated, the interactions with patient, family, and staff as well as the review of records all occurred today. I also attest that the listed assessment and stated plan reflect my best clinical judgment today based on the combination of historical information, prior notes, and today's exam/ interactions. When time spent is documented, it refers only to time spent today by the signer, or if indicated, combined time spent today by collaborating physician/nurse practitioner. FIDEL VALDEZ Nov 13, 2016 12:29
[2016-11-13 12:34] LABS: POTASSIUM 4.6 MEQ/L (3.5-5.1)
[2016-11-13 15:59] VITALS: BP 105/67; PULSE 117; RESP 20; TEMP 97.6; O2SAT 94
[2016-11-13] MEDS: METOCLOPRAMIDE HCL 10 MG/2 ML VIAL IV PUSH PRN (16:41)
[2016-11-13] MEDS: PANTOPRAZOLE SODIUM 40 MG VIAL IV PUSH SCH (16:42)
[2016-11-14] VITALS: BP 91/52; PULSE 114; RESP 16; TEMP 96.9; O2SAT 95
[2016-11-14 04:00] VITALS: BP 103/61; PULSE 115; RESP 17; TEMP 97; O2SAT 97
[2016-11-14] MEDS: HYDROmorphone HCL PF 1 MG/ML VIAL IV PRN ×4 (04:36→22:21)
[2016-11-14] MEDS: ONDANSETRON HCL 4 MG/2 ML VIAL IVP PRN ×2 (04:36→10:59)
[2016-11-14 08:05] VITALS: BP 94/60; PULSE 110; RESP 16; TEMP 98.1; O2SAT 98
--- NOTE | 2016-11-14 08:15 | PD.ONC.PN ---
Subjective Subjective Remarks pt was sleeping awakens to voice denies any pain just dry mouth no complaints states did ok with dialysis yesterday states still having some nausea Objective Data Date Time Temp Pulse Resp B/P Pulse Ox O2 Delivery O2 Flow Rate FiO2 11/14/16 04:00 97.0 115 17 103/61 97 11/14/16 00:00 96.9 114 16 91/52 95 11/13/16 15:59 97.6 117 20 105/67 94 11/13/16 12:00 96.3 107 18 99/65 95 11/13/16 09:07 Room Air 11/14/16 11/14/16 11/14/16 07:00 15:00 23:00 Intake Total 303 ml Output Total 650 ml Balance -347 ml Result Diagram: 11/13/16 1200 Laboratory Results Laboratory Tests Test 11/13/16 12:00 Sodium Level 132 MEQ/L Potassium Level 4.6 MEQ/L Chloride Level 94 MEQ/L Carbon Dioxide Level 24.0 MEQ/L Anion Gap 14 MEQ/L Blood Urea Nitrogen 69 MG/DL Creatinine 8.95 MG/DL Estimat Glomerular Filtration 5 ML/MIN Rate Random Glucose 67 MG/DL Calcium Level 7.5 MG/DL Administered Medications Medications (Trade) Dose Ordered Sig/Lalitha Route PRN Reason Start Time Stop Time Status Last Admin Dose Admin IV Flush (NS Flush) 2 ml UNSCH PRN FLUSH FLUSH AFTER USING IV ACCESS 11/08/16 19:00 11/10/16 18:18 IV Flush (NS Flush) 2 ml BID FLUSH 11/08/16 21:00 11/13/16 22:30 Ondansetron HCl (Zofran Inj) 4 mg Q6H PRN IVP NAUSEA OR VOMITING 11/08/16 20:00 11/14/16 04:36 Metoclopramide HCl (Reglan Inj) 5 mg Q6H PRN IV PUSH NAUSEA OR VOMITING 11/08/16 20:00 11/13/16 16:41 Hydromorphone HCl (Dilaudid Pf Inj) 0.5 mg Q4HR PRN IV pain 5-10 11/08/16 20:00 11/14/16 04:36 Heparin Sodium (Porcine) (Heparin Inj) UNSCH PRN .XX WITH DIALYSIS 11/09/16 13:45 11/10/16 11:43 Gentamicin Sulfate (Gentamicin (Dialysis) Inj) 20 mg UNSCH PRN IV WITH DIALYSIS 11/09/16 13:45 11/10/16 11:44 Ondansetron HCl (Zofran Inj) 4 mg UNSCH PRN IV WITH DIALYSIS 11/09/16 13:45 11/12/16 22:23 Epoetin Cody (Epogen Inj) 10,000 units UNSCH PRN IV WITH DIALYSIS 11/09/16 13:45 11/10/16 11:43 Pantoprazole Sodium (Protonix Inj) 40 mg Q24H IV PUSH 11/10/16 16:00 11/13/16 16:42 Heparin Sodium (Porcine) (Heparin Inj) 5,000 units Q12HR SQ 11/10/16 21:00 11/13/16 22:30 Padimate O (Chapstick) 1 applic Q2H PRN TOPICAL DRY LIPS 11/11/16 15:30 11/13/16 04:07 Lorazepam 0.5 mg 0.5 mg Q6HR PRN IVP ANXIETY 11/11/16 18:00 11/13/16 09:13 Sodium Chloride (NS 1000 ml Inj) 1,000 ml @ 50 mls/hr Q20H IV 11/13/16 10:00 11/13/16 22:31 Objective Remarks GENERAL: frail SKIN: Warm and dry. HEAD: Normocephalic. EYES: No scleral icterus. No injection or drainage. NECK: Supple CARDIOVASCULAR: Regular rate and rhythm without murmurs. RESPIRATORY: Breath sounds equal bilaterally. No accessory muscle use. MUSCULOSKELETAL: muscle deconditioning NEUROLOGICAL: No obvious focal deficit.sleepy PSYCHIATRIC: Appropriate mood and affect; insight and judgment normal. Assessment/Plan Problem List: (1) ESRD on hemodialysis Status: Chronic Plan: Mrs. Ochoa wishes to keep on dialysis at this time. Had dialysis yesterday (2) Small bowel obstruction Status: Acute Plan: continue NG tube to [facility] supportive care + BM (3) Endometrial cancer Status: Chronic Plan: despite recent treatment Mrs. Ochoa has had advancement of disease she is a poor candidate for continued IV chemo d/t decreased performance status and ESRD pt remains DNR Palliative Care is following and we appreciate their assistance. Attending Statement Dr. Bai is in agreement with this plan of care Adán Bai Nov 14, 2016 08:15
[2016-11-14] MEDS: SODIUM CHLORIDE 0.9% FLUSH 5 ML FLUSH FLUSH SCH ×2 (08:46→22:22)
[2016-11-14] MEDS: VITAMIN B CMPLX/VITC/FOLIC AC CAP PO SCH (08:46)
[2016-11-14] MEDS: HEPARIN SODIUM - SQ 10,000 UNITS/ML VIAL SQ SCH ×2 (08:48→22:21)
--- NOTE | 2016-11-14 10:23 | HHI.PR ---
Subjective Remarks pt wants to try liquids. had some flatus overnight and bm day before. Objective Vitals ngt to suction heart reg lung cta abd minimal bs/firm ext no edema Vital Signs Date Time Temp Pulse Resp B/P Pulse Ox O2 Delivery O2 Flow Rate FiO2 11/14/16 09:23 18 11/14/16 08:05 98.1 110 16 94/60 98 11/14/16 04:00 97.0 115 17 103/61 97 11/14/16 00:00 96.9 114 16 91/52 95 11/13/16 15:59 97.6 117 20 105/67 94 11/13/16 12:00 96.3 107 18 99/65 95 11/13/16 11/13/16 11/14/16 15:00 23:00 07:00 Intake Total 269 ml 200 ml 303 ml Output Total 100 ml 225 ml 650 ml Balance 169 ml -25 ml -347 ml Intake Oral 0 ml IV Total 269 ml 200 ml 303 ml Gastric Drainage Total 100 ml 225 ml 350 ml Hemodialysis 300 ml # Voids 2 0 # Bowel Movements 0 0 Result Diagram: 11/13/16 1200 Imaging Last Impressions Abdomen X-Ray 11/09/16 1147 Signed Impressions: Service Date/Time: Wednesday, November 09, 2016 11:54 - CONCLUSION: 1. Nasogastric tube across the GE junction. 2. There is no significant dilatation or obstruction. Lalo Hicks MD FACR Abdomen/Pelvis CT 11/08/16 1524 Signed Impressions: Service Date/Time: November 16:18 - CONCLUSION: 1. The small bowel is quite distended throughout except for the very distal terminal ileum. I do not see a transition point but small bowel is clearly more dilated than in June 2016. The colon is decompressed; it could be a distal small bowel obstruction. 2. Severe hydronephrosis and hydroureter bilaterally with removal of the Double-J ureteral catheters. 3. The left lobe of the liver metastatic lesion is clearly smaller. Luis Mar MD Chest X-Ray 11/08/16 0000 Signed Impressions: Service Date/Time: November 15:39 - CONCLUSION: Moderate- sized left pleural effusion. Right-sided Ryqdty-[id number]-Nznu catheter and left-sided dual-lumen catheter in good position. Luis Mar MD A/P Problem List: (1) Small bowel obstruction Status: Acute Plan: -Metastatic endometrial ca. bowel obstruction related to tumor. Pt seen by recreation center director/onc and general surgery. No surgery indicated. Further chemo not felt to improve quality or length of life Pt and family met with palliative care for meeting 11/13. refusing hospice care at this time. poor prognosis pt/family want to try po intake. will start with liquids. stop LIWS but resume if sx's worsen gentle IVF cont HD per pt wishes PT. dnr prn pain/anxiety meds. (2) ESRD on hemodialysis Status: Chronic Plan: - comgmt with Nephrology - HD on Sat, , Sat - Pt underwent HD (11/10/16) - see above (3) Endometrial cancer Status: Chronic Plan: - comgmt with [facility], Palliative - endometrial cancer stage IIB with metastasis to the lung and liver - Hospice would be appropriate. (4) DVT (deep venous thrombosis) Status: Chronic Plan: - sq heparin while npo. Ted Blake MD Nov 14, 2016 10:23
[2016-11-14 12:15] VITALS: BP 101/64; PULSE 110; RESP 16; TEMP 97.4; O2SAT 95
[2016-11-14] MEDS: PANTOPRAZOLE SODIUM 40 MG VIAL IV PUSH SCH (16:09)
[2016-11-14 16:31] VITALS: BP 91/56; PULSE 113; RESP 18; TEMP 97.1; O2SAT 96
--- NOTE | 2016-11-14 17:46 | HHI.NPPN ---
Subjective History of Present Illness 61 y/o AAF with a hx of endometrial CA who has no responded to chemotherapy. She has ESRD, was started on dialysis T--Sat since June. 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 Additional Remarks Patient is alert, still with NGT suction and has some abd. discomfort. Review of Systems General Constitutional: Fatigue, Weight Change Gastrointestinal Gastrointestinal: Nausea & Vomiting Objective Data Data 11/13/16 11/14/16 19:00 07:00 Intake Total 269 ml 503 ml Output Total 100 ml 875 ml Balance 169 ml -372 ml Intake Oral 0 ml IV Total 269 ml 503 ml Gastric Drainage Total 100 ml 575 ml Hemodialysis 300 ml # Voids 2 0 # Bowel Movements 0 0 Vital Signs Date Time Temp Pulse Resp B/P Pulse Ox O2 Delivery O2 Flow Rate FiO2 11/14/16 16:31 97.1 113 18 91/56 96 11/14/16 14:47 18 11/14/16 12:15 97.4 110 16 101/64 95 11/14/16 08:05 98.1 110 16 94/60 98 11/14/16 04:00 97.0 115 17 103/61 97 11/14/16 00:00 96.9 114 16 91/52 95 -: 11/13/16 1200 Physical Exam General Appearance: No Acute Distress, Comfortable Neck Neck Exam: Neck Supple Pulmonary Resp Exam: Breath Sounds Equal, No Distress, Decreased Bases Cardiology CV Exam: Regular Gastrointestinal/Abdomen GI Exam: Soft, Non-Tender, Distended Extremeties Extremities Exam: Trace Edema Neurologic Neuro Exam: Alert, Awake Psychiatric Psych Exam: Appropriate Responses Assessment/Plan Problem List: (1) ESRD on hemodialysis Plan: dialysis today and -, has PermCath for HD Patient has clotted AVF and any intervention was held by the Vascular due to her overall condition. Patient was seen by Hospice. She want to continue HD and was done last night. Still with NGT and suction. D/W the family in detail about Dialysis, and if patient want to continue, she will be limited due to her weakness and going back and forth 3 times a week. (2) Hypertension Plan: continue medications with hold parameters (3) Endometrial cancer Plan: palliative consulted, she declined transition to comfort measure inclusion specialist onc following, appreciate recommendations (4) Anemia Plan: epogen with HD (5) Vomiting Plan: confirmed SBO NG tube in place, NPO now surgery to be consulted Irvin Nava MD Nov 14, 2016 17:46
[2016-11-14 19:41] VITALS: BP 101/65; PULSE 106; RESP 18; TEMP 98.3; O2SAT 98
[2016-11-14] MEDS: METOCLOPRAMIDE HCL 10 MG/2 ML VIAL IV PUSH PRN (22:22)
[2016-11-14] MEDS: LORazepam 2 MG/ML VIAL IVP PRN (23:59)
[2016-11-15 00:45] VITALS: BP 109/77; PULSE 114; RESP 19; TEMP 97.4; O2SAT 95
[2016-11-15] MEDS: SODIUM CHLOR 0.9% 1000 ML INJ 1,000 ML IV SCH ×2 (02:00→22:00)
[2016-11-15] MEDS: LORazepam 2 MG/ML VIAL IVP PRN (06:28)
[2016-11-15 08:00] VITALS: BP 94/63; PULSE 105; RESP 20; TEMP 96.4; O2SAT 98
[2016-11-15] MEDS: VITAMIN B CMPLX/VITC/FOLIC AC CAP PO SCH (09:00)
[2016-11-15] MEDS: SODIUM CHLORIDE 0.9% FLUSH 5 ML FLUSH FLUSH SCH ×2 (09:00→23:48)
[2016-11-15] MEDS: HEPARIN SODIUM - SQ 10,000 UNITS/ML VIAL SQ SCH ×2 (09:39→23:46)
[2016-11-15] MEDS: HYDROmorphone HCL PF 1 MG/ML VIAL IV PRN ×2 (10:19→23:47)
[2016-11-15] MEDS ORDERED: BENZOCAINE 20% ORAL SPR 60 ML CAN OROPHARYNG ONE (11:00)
--- NOTE | 2016-11-15 11:06 | HHI.PR ---
Subjective Remarks failed trial of clears. Objective Vitals ngt to suction minimal to no bs firm abdomen Vital Signs Date Time Temp Pulse Resp B/P Pulse Ox O2 Delivery O2 Flow Rate FiO2 11/15/16 08:00 96.4 105 20 94/63 98 11/15/16 00:45 97.4 114 19 109/77 95 11/14/16 19:41 98.3 106 18 101/65 98 11/14/16 16:31 97.1 113 18 91/56 96 11/14/16 14:47 18 11/14/16 12:15 97.4 110 16 101/64 95 11/14/16 11/14/16 11/15/16 15:00 23:00 07:00 Intake Total 1825 ml 480 ml Output Total 300 ml Balance 1525 ml 480 ml Intake Oral 480 ml 480 ml IV Total 1345 ml Gastric Drainage Total 300 ml # Voids 3 1 # Bowel Movements 0 0 Result Diagram: 11/13/16 1200 Imaging Last Impressions Abdomen X-Ray 11/09/16 1147 Signed Impressions: Service Date/Time: Wednesday, November 09, 2016 11:54 - CONCLUSION: 1. Nasogastric tube across the GE junction. 2. There is no significant dilatation or obstruction. Lalo Hicks MD FACR Abdomen/Pelvis CT 11/08/16 1524 Signed Impressions: Service Date/Time: November 16:18 - CONCLUSION: 1. The small bowel is quite distended throughout except for the very distal terminal ileum. I do not see a transition point but small bowel is clearly more dilated than in June 2016. The colon is decompressed; it could be a distal small bowel obstruction. 2. Severe hydronephrosis and hydroureter bilaterally with removal of the Double-J ureteral catheters. 3. The left lobe of the liver metastatic lesion is clearly smaller. Luis Mar MD Chest X-Ray 11/08/16 0000 Signed Impressions: Service Date/Time: November 15:39 - CONCLUSION: Moderate- sized left pleural effusion. Right-sided Lvkqzq-[id number]-Vgge catheter and left-sided dual-lumen catheter in good position. Luis Mar MD A/P Problem List: (1) Small bowel obstruction Status: Acute Plan: -Metastatic endometrial ca. bowel obstruction related to tumor. Pt seen by typists supervisor/onc and general surgery. No surgery indicated. Further chemo not felt to improve quality or length of life Pt and family met with palliative care for meeting 11/13. refusing hospice care at this time. poor prognosis pt failed trial of clears yesterday and wants to try again today. Long talk with daughter...2 daughters and apparently some other family members are supportive of hospice. 1 daughter was so far against. they want to meed again with palliative. I will meet with pt alone tomorrow to discuss hospice if she hasn't chosen that yet gentle IVF cont HD per pt wishes PT. dnr prn pain/anxiety meds. (2) ESRD on hemodialysis Status: Chronic Plan: - comgmt with Nephrology - HD on , Sat - Pt underwent HD (11/10/16) - see above (3) Endometrial cancer Status: Chronic Plan: - comgmt with [facility], Palliative - endometrial cancer stage IIB with metastasis to the lung and liver - Hospice would be appropriate. (4) DVT (deep venous thrombosis) Status: Chronic Plan: - sq heparin while npo. Ted Blake MD Nov 15, 2016 11:06
--- NOTE | 2016-11-15 15:45 | HHI.HCPN ---
Call from daughterJenni to request another family meeting. Arranged a meeting 06/25 at 11am with patient and daughters to provide medical update, further clarify goals and DC options. FIDEL VALDEZ Nov 15, 2016 15:45
[2016-11-15 16:00] VITALS: BP 85/63; PULSE 115; RESP 20; TEMP 95.9; O2SAT 97
[2016-11-15] MEDS: ONDANSETRON HCL 4 MG/2 ML VIAL IV PRN (16:45)
[2016-11-15] MEDS: PANTOPRAZOLE SODIUM 40 MG VIAL IV PUSH SCH (16:45)
--- NOTE | 2016-11-15 16:56 | PQ ---
Physician Query Response Document PATIENT: LY PAL : 1955 ADMIT DATE: 11/08/2016 6:14 PM DISCH DATE: RESPONDING PROVIDER #: Rbraithw QUERY TEXT: Anemia Type Anemia is documented in the Medical Record. Please specify the cause (includes suspected or probable cause) Such as: -- Due to acute blood loss -- Due to chronic blood loss -- Due to iron deficiency -- Due to postoperative blood loss -- Due to chronic disease -- Other, please specify The patient's Clinical Indicators include: All nephrology progress notes starting on 11/09/16 include Anemia in the diagnosis. (4) Anemia Plan: epogen with HD Labs from 11/08/16) RBC 3.19, Hbg 9.2, and Hct 29.1 Query created by: Diamond Shields on 11/14/2016 3:25 PM RESPONSE TEXT: Pt has anemia of chronic disease. Electronically signed by: Ted Blake MD 11/15/2016 4:52 PM
--- NOTE | 2016-11-15 19:43 | HHI.NPPN ---
Subjective History of Present Illness 61 y/o AAF with a hx of endometrial CA who has no responded to chemotherapy. She has ESRD, was started on dialysis T--Sat since June. Patient has been following with BRICKLAYER SUPERVISOR/Oncology. Additional Remarks Patient is alert, clinically same, with NGT suction and has some abd. discomfort.BP is on lower side. Review of Systems General Constitutional: Fatigue, Weight Change Gastrointestinal Gastrointestinal: Nausea & Vomiting Objective Data Data 11/14/16 11/15/16 19:00 07:00 Intake Total 450 ml 1855 ml Output Total 300 ml Balance 150 ml 1855 ml Intake Oral 960 ml IV Total 450 ml 895 ml Gastric Drainage Total 300 ml # Voids 4 # Bowel Movements 0 Vital Signs Date Time Temp Pulse Resp B/P Pulse Ox O2 Delivery O2 Flow Rate FiO2 11/15/16 16:00 95.9 115 20 85/63 97 11/15/16 08:00 96.4 105 20 94/63 98 11/15/16 00:45 97.4 114 19 109/77 95 -: 11/13/16 1200 Physical Exam General Appearance: No Acute Distress, Comfortable Neck Neck Exam: Neck Supple Pulmonary Resp Exam: Breath Sounds Equal, No Distress, Decreased Bases Cardiology CV Exam: Regular Gastrointestinal/Abdomen GI Exam: Soft, Non-Tender, Distended Extremeties Extremities Exam: Trace Edema Neurologic Neuro Exam: Alert, Awake Psychiatric Psych Exam: Appropriate Responses Assessment/Plan Problem List: (1) ESRD on hemodialysis Plan: dialysis today and T--Sat, has PermCath for HD Patient has clotted AVF and any intervention was held by the Vascular due to her overall condition. Patient was seen by Hospice. She want to continue HD. Still with NGT and suction. D/W the family in detail about Dialysis, and if patient want to continue, HD done and only 300 ml fluid removed. BP is low, on IVF. Overall prognosis is poor. D/W the patient and family. (2) Hypertension Plan: continue medications with hold parameters (3) Endometrial cancer Plan: palliative consulted, she declined transition to comfort measure dye winch operator onc following, appreciate recommendations (4) Anemia Plan: epogen with HD (5) Vomiting Plan: confirmed SBO NG tube in place, NPO now surgery to be consulted Irvin Nava MD Nov 15, 2016 19:43
[2016-11-16] MEDS: LORazepam 2 MG/ML VIAL IVP PRN (00:11)
[2016-11-16 00:35] VITALS: BP 96/63; PULSE 116; RESP 18; TEMP 98.1; O2SAT 96
[2016-11-16 04:39] VITALS: BP 97/71; PULSE 114; RESP 18; TEMP 96.9; O2SAT 93
[2016-11-16] MEDS: SODIUM CHLORIDE 0.9% FLUSH 5 ML FLUSH FLUSH SCH ×2 (07:29→20:48)
[2016-11-16] MEDS: VITAMIN B CMPLX/VITC/FOLIC AC CAP PO SCH (07:29)
[2016-11-16 08:00] VITALS: BP 88/61; PULSE 118; RESP 20; TEMP 97.2; O2SAT 100
[2016-11-16] MEDS: BENZOCAINE 20% ORAL SPR 60 ML CAN OROPHARYNG PRN ×2 (09:02→18:43)
[2016-11-16] MEDS: HEPARIN SODIUM - SQ 10,000 UNITS/ML VIAL SQ SCH ×2 (09:03→20:48)
--- NOTE | 2016-11-16 11:07 | HHI.PR ---
Subjective Remarks lying in bed. didn't tolerate clears. Objective Vitals ngt to suction heart reg lung cta abd firm. minimal bs ext no edema Vital Signs Date Time Temp Pulse Resp B/P Pulse Ox O2 Delivery O2 Flow Rate FiO2 11/16/16 08:00 97.2 118 20 88/61 100 11/16/16 04:39 96.9 114 18 97/71 93 11/16/16 00:35 98.1 116 18 96/63 96 11/15/16 16:00 95.9 115 20 85/63 97 11/15/16 11/15/16 11/16/16 15:00 23:00 07:00 Intake Total 360 ml 480 ml 480 ml Output Total 350 ml Balance 10 ml 480 ml 480 ml Intake Oral 360 ml 480 ml 480 ml Gastric Drainage Total 350 ml # Voids 1 3 2 # Bowel Movements 1 0 0 Result Diagram: 11/13/16 1200 Imaging Last Impressions Abdomen X-Ray 11/09/16 1147 Signed Impressions: Service Date/Time: Wednesday, November 09, 2016 11:54 - CONCLUSION: 1. Nasogastric tube across the GE junction. 2. There is no significant dilatation or obstruction. Lalo Hicks MD FACR Abdomen/Pelvis CT 11/08/16 1524 Signed Impressions: Service Date/Time: November 16:18 - CONCLUSION: 1. The small bowel is quite distended throughout except for the very distal terminal ileum. I do not see a transition point but small bowel is clearly more dilated than in June 2016. The colon is decompressed; it could be a distal small bowel obstruction. 2. Severe hydronephrosis and hydroureter bilaterally with removal of the Double-J ureteral catheters. 3. The left lobe of the liver metastatic lesion is clearly smaller. Luis Mra MD Chest X-Ray 11/08/16 0000 Signed Impressions: Service Date/Time: November 15:39 - CONCLUSION: Moderate- sized left pleural effusion. Right-sided Djmsbl-r-Ktld catheter and left-sided dual-lumen catheter in good position. Luis Mar MD A/P Problem List: (1) Small bowel obstruction Status: Acute Plan: -Metastatic endometrial ca. bowel obstruction related to tumor. Pt seen by ob gyn physician assistant/onc and general surgery. No surgery indicated. Further chemo not felt to improve quality or length of life Pt and family met with palliative care for meeting 11/13. refusing hospice care at this time. poor prognosis pt failed trial of clears bp running low palliative care meeting with family again she needs hospice and hopefully pt/family will agree to it. [facility]. gentle IVF cont HD per pt wishes PT. dnr prn pain/anxiety meds. (2) ESRD on hemodialysis Status: Chronic Plan: - comgmt with Nephrology - HD on , Sat - Pt underwent HD (11/10/16) - see above (3) Endometrial cancer Status: Chronic Plan: - comgmt with [facility]ue Stitcher Oncology, Palliative - endometrial cancer stage IIB with metastasis to the lung and liver - Hospice would be appropriate. (4) DVT (deep venous thrombosis) Status: Chronic Plan: - sq heparin while npo. Ted Blake MD Nov 16, 2016 11:07
[2016-11-16] MEDS: HYDROmorphone HCL PF 1 MG/ML VIAL IV PRN ×2 (11:59→19:02)
[2016-11-16 12:00] VITALS: BP 94/67; PULSE 122; RESP 20; TEMP 96.4; O2SAT 99
--- NOTE | 2016-11-16 12:04 | HHI.HCPN ---
Reason for visit a. To assist with evaluation and management of symptoms including: pain, fatigue, nausea. b. To assist medical decision maker(s) with: better understanding of current medical conditions; weighing benefits/burdens of medical treatment options; making medical treatment decisions. . Subjective/Interval History Patient seen and examined with 2 of 3 daughters at bedside. Patient awakens easily. She is alert and oriented. She has insight to her disease and overall prognosis. Patient reports pain in her throat and abdomen. She rates are pain currently 10 out of 10. She is crying in pain during my visit. Nurses have been unable to medicate for pain due to hypotension. She has pain at NG tube site and diffuse pain throughout the abdomen. Previously PRN Dilaudid 0.5 mg every 4 hours was relieving her pain. She has been hypotensive since dialysis yesterday. Afebrile. Tachycardic. Hypotensive. LBM 11/16/16. NG tube remains in place to LIWS. Intermittent cough with phlegm production. We reviewed medical update, poor prognosis and likelihood patient will not be able to continue dialysis now due to hypotension. She has not been able to tolerate clamping of NG tube, continues to have drainage yellow-brown secretions. She Is appropriately tearful and family is very supportive. Family is considering hospice care center vs home with hospice. Patient and family at bedside indicates possible care center placement for pain management with hopes to return home. I Spoke with daughter Jenni via telephone after meeting and she would prefer patient come home, asks about "continuous care" to assist with pain management at home. I told her hospice will help them decide what is best for her and family. Advised nurse to medicate patient for pain as her goals are comfort oriented. Discussed with Dr. Blake, nurse and geriatric case manager. . Family/friend interactions See interval note. Advance Directives Health Care Surrogate: Copy in medical record Advance Directive Specifics Health Care Surrogate(s): Renuka Ochoa- daughter- [phone]. Alternate phone [phone] Rekha Duran - [phone]. Alternate phone [phone] Significant change in goals: NO CODE. Goals are comfort oriented, hospice to follow up for DC plan to care center vs home when arrangements made. . Objective Vital Signs Date Time Temp Pulse Resp B/P Pulse Ox O2 Delivery O2 Flow Rate FiO2 11/16/16 08:00 97.2 118 20 88/61 100 11/16/16 04:39 96.9 114 18 97/71 93 11/16/16 00:35 98.1 116 18 96/63 96 11/15/16 16:00 95.9 115 20 85/63 97 Intake & Output 11/16/16 11/16/16 07:00 19:00 Intake Total 960 ml Balance 960 ml Intake Oral 960 ml # Voids 5 # Bowel Movements 0 Physical Exam CONSTITUTIONAL/GENERAL: This is a thin frail AA female looking older than stated age, grimacing/ tearful in pain. TUBES/LINES/DRAINS: NG tube to low intermittent suction; permacath upper chest wall SKIN: AVF in right upper arm, No jaundice, rashes, or lesions. Skin temperature appropriate. Not diaphoretic. ENT: Hearing grossly normal. NG tube. CARDIOVASCULAR: tachycardic. RESPIRATORY/CHEST: Symmetric, unlabored respirations. few scattered course breath sounds. GASTROINTESTINAL: Abdomen taut, rounded, nontender, bowel sounds not present. GENITOURINARY: Without palpable bladder distension. MUSCULOSKELETAL: Extremities without clubbing, cyanosis, or edema. No joint tenderness or effusion noted. No calf tenderness. No mottling or clubbing. NEUROLOGICAL: Awake and alert x 4. Generalized weakness. Moves all extremities. PSYCHIATRIC: She is tearful, reports pain, fear and sadness. . Diagnostic Tests Laboratory Laboratory Tests Test 11/13/16 12:00 Sodium Level 132 MEQ/L (136-145) Potassium Level 4.6 MEQ/L (3.5-5.1) Chloride Level 94 MEQ/L (98-107) Carbon Dioxide Level 24.0 MEQ/L (21.0-32.0) Anion Gap 14 MEQ/L (5-15) Blood Urea Nitrogen 69 MG/DL (7-18) Creatinine 8.95 MG/DL (0.50-1.00) Estimat Glomerular Filtration 5 ML/MIN (>89) Rate Random Glucose 67 MG/DL (74-106) Calcium Level 7.5 MG/DL (8.5-10.1) Result Diagram: 11/13/16 1200 Imaging Last Impressions Abdomen X-Ray 11/12/16 0800 Signed Impressions: Service Date/Time: Saturday, November 12, 2016 09:54 - CONCLUSION: 1. There are no imaging findings to indicate small bowel obstruction. However, the CT from 11/08/2016 documented fluid-filled dilated loops of small bowel. Fluid-filled loops of small bowel can be occult on plain film imaging. 2. Persistent left pleural effusion. Srinivas Moore MD Abdomen/Pelvis CT 11/08/16 1524 Signed Impressions: Service Date/Time: November 16:18 - CONCLUSION: 1. The small bowel is quite distended throughout except for the very distal terminal ileum. I do not see a transition point but small bowel is clearly more dilated than in June 2016. The colon is decompressed; it could be a distal small bowel obstruction. 2. Severe hydronephrosis and hydroureter bilaterally with removal of the Double-J ureteral catheters. 3. The left lobe of the liver metastatic lesion is clearly smaller. Luis Mar MD Chest X-Ray 11/08/16 0000 Signed Impressions: Service Date/Time: November 15:39 - CONCLUSION: Moderate- sized left pleural effusion. Right-sided Lqdsga-e-Magm catheter and left-sided dual-lumen catheter in good position. Luis Mar MD . Procedures Permacath placement, 09/04/16 Assessment and Plan Disease Oriented Problem List: (1) Endometrial cancer Comment: Advancing metastatic disease in spite of chemotherapy (2) Small bowel obstruction (3) ESRD on hemodialysis (4) HTN (hypertension) Symptom Scale: (1) Pain 0-10 Scale: 10 Comment: abdominal pain and pain at NG site - currently rates 10 out of 10 (2) Nausea 0-10 Scale: 0 Comment: denies today (3) Debility, unspecified Comment: metastatic dx along with ESRD Pertinent Non-Medical Issues Psychosocial: Supportive family with hope for more days. Spiritual: Caodaism - involved with the rastafari Legal: Ethical issues impacting care: Important Contacts Renuka Ochoa (daughter) [phone] Prognosis Ms. ochoa is a 61-year-old female with metastatic endometrial cancer with Mets to liver, lung, adenopathy and omental disease, she also has end-stage renal disease on hemodialysis. Overall prognosis is poor, life expectancy likely 6 months or less. Hospice appropriate if goals are comfort oriented. . Code Status: No Code Plan * Patient is currently capacitated to make her own decisions. Patient has completed designation of HCS form naming her daughters, Jenni and/or Rekha as primary HCS. * NO CODE. [place] do not resuscitate order completed on 11/13/16 and placed on chart to go with home with patient upon discharge. * 11/16/16 - We reviewed medical update, poor prognosis and likelihood patient will not be able to continue dialysis now due to hypotension. She has not been able to tolerate clamping of NG tube, continues to have drainage yellow-brown secretions. She Is appropriately tearful and family is very supportive. Family is considering hospice care center vs home with hospice. Patient and family at bedside indicates possible care center placement for pain management with hopes to return home. I Spoke with daughter Jenni via telephone after meeting and she would prefer patient come home, asks about "continuous care" to assist with pain management at home. I told her hospice will help them decide what is best for her and family. Advised nurse to medicate patient for pain as her goals are comfort oriented. * Discussed with Dr. Blake, nurse, geriatric case manager and hospice nurse. * SYMPTOMS: Pain due to advancing metastatic abdominal cancer - PRN Dilaudid has been held due to hypotension, nurse will medicate now that goals are clearly comfort oriented. Advised nurse to call if meds not adequate. Nausea - NG tube remains in place. Debility - this is a very frail woman with metastatic cancer as well as ESRD on HD 3 times a week. She lives w her daughter. * Palliative care will continue to follow to assist with clarification of goals. . Attestation To help prompt me to consider important information that might be impacting today's encounter and assessment, information from prior notes written by myself or my colleagues may have been "brought forward" into today's note. My signature on this note, however, is an attestation that I personally performed the exam, history, and/or decision-making noted today, and, unless otherwise indicated, the interactions with patient, family, and staff as well as the review of records all occurred today. I also attest that the listed assessment and stated plan reflect my best clinical judgment today based on the combination of historical information, prior notes, and today's exam/ interactions. When time spent is documented, it refers only to time spent today by the signer, or if indicated, combined time spent today by collaborating physician/nurse practitioner. . FIDEL VALDEZ Nov 16, 2016 12:04
--- NOTE | 2016-11-16 12:34 | HHI.NPPN ---
Subjective History of Present Illness 61 y/o AAF with a hx of endometrial CA who has no responded to chemotherapy. She has ESRD, was started on dialysis T--Sat since June. Patient has been following with COLOR CARD MAKER/Oncology. Additional Remarks Patient is alert, with NGT, feeling weak and tired. Review of Systems General Constitutional: Fatigue, Weight Change Gastrointestinal Gastrointestinal: Nausea & Vomiting Objective Data Data 11/15/16 11/16/16 19:00 07:00 Intake Total 360 ml 960 ml Output Total 350 ml Balance 10 ml 960 ml Intake Oral 360 ml 960 ml Gastric Drainage Total 350 ml # Voids 1 5 # Bowel Movements 1 0 Vital Signs Date Time Temp Pulse Resp B/P Pulse Ox O2 Delivery O2 Flow Rate FiO2 11/16/16 08:00 97.2 118 20 88/61 100 11/16/16 04:39 96.9 114 18 97/71 93 11/16/16 00:35 98.1 116 18 96/63 96 11/15/16 16:00 95.9 115 20 85/63 97 -: 11/13/16 1200 Physical Exam General Appearance: No Acute Distress, Comfortable Neck Neck Exam: Neck Supple Pulmonary Resp Exam: Breath Sounds Equal, No Distress, Decreased Bases Cardiology CV Exam: Regular Gastrointestinal/Abdomen GI Exam: Soft, Non-Tender, Distended Extremeties Extremities Exam: Trace Edema Neurologic Neuro Exam: Alert, Awake Psychiatric Psych Exam: Appropriate Responses Assessment/Plan Problem List: (1) ESRD on hemodialysis Plan: dialysis today and T--Sat, has PermCath for HD Patient has clotted AVF and any intervention was held by the Vascular due to her overall condition. Patient was seen by Hospice. Still with NGT and suction. D/W the family in detail about Dialysis. She now just has meeting with Hospice. They all decided to go for it and stop HD. I will sign off from Nephrology, call again if needed. (2) Hypertension Plan: continue medications with hold parameters (3) Endometrial cancer Plan: palliative consulted, she declined transition to comfort measure online journalist onc following, appreciate recommendations (4) Anemia Plan: epogen with HD (5) Vomiting Plan: confirmed SBO NG tube in place, NPO now surgery to be consulted Irvin Nava MD Nov 16, 2016 12:34
[2016-11-16 16:00] VITALS: BP 100/69; PULSE 126; RESP 20; TEMP 95.8; O2SAT 95
[2016-11-16] MEDS: PANTOPRAZOLE SODIUM 40 MG VIAL IV PUSH SCH (17:35)
[2016-11-16 20:00] VITALS: BP 96/64; PULSE 119; RESP 18; TEMP 97.7; O2SAT 100
[2016-11-16] MEDS: SODIUM CHLOR 0.9% 1000 ML INJ 1,000 ML IV SCH (20:49)
[2016-11-17] MEDS: BENZOCAINE 20% ORAL SPR 60 ML CAN OROPHARYNG PRN ×2 (02:40→21:24)
[2016-11-17 04:00] VITALS: BP 82/60; PULSE 115; RESP 18; TEMP 97.8; O2SAT 96
[2016-11-17 07:25] VITALS: BP 83/59; PULSE 112; RESP 16; TEMP 95.8; O2SAT 93
[2016-11-17] MEDS: VITAMIN B CMPLX/VITC/FOLIC AC CAP PO SCH (09:00)
[2016-11-17] MEDS: LORazepam 2 MG/ML VIAL IVP PRN (09:49)
[2016-11-17] MEDS: HYDROmorphone HCL PF 1 MG/ML VIAL IV PRN ×3 (09:50→21:25)
[2016-11-17] MEDS: HEPARIN SODIUM - SQ 10,000 UNITS/ML VIAL SQ SCH ×2 (09:51→21:24)
[2016-11-17] MEDS: SODIUM CHLORIDE 0.9% FLUSH 5 ML FLUSH FLUSH SCH ×2 (10:05→21:00)
[2016-11-17] MEDS: SODIUM CHLOR 0.9% 1000 ML INJ 1,000 ML IV SCH ×2 (10:09→21:24)
[2016-11-17 11:52] VITALS: BP 76/55; PULSE 109; RESP 16; TEMP 95.9; O2SAT 98
--- NOTE | 2016-11-17 13:09 | HHI.DS ---
Discharge Summary Admission Date Nov 08, 2016 at 18:14 Discharge Date: Nov 17, 2016 Admitting Diagnosis SBO; ESRD on dialysis (1) Small bowel obstruction Diagnosis: Principal (2) ESRD on hemodialysis Diagnosis: Principal (3) Endometrial cancer Diagnosis: Principal (4) DVT (deep venous thrombosis) Diagnosis: Secondary Brief History 61-year-old female presents to the emergency department for evaluation nausea, vomiting, abdominal pain. She states this started a week ago, but for the last 4 days, she is unable to keep any food or fluids down. Patient is undergoing chemotherapy by Dr. Bai for endometrial cancer that has metastasized to the lung, liver. The patient also states she has been slightly increased shortness of breath. She has tried Zofran, Phenergan, Reglan at home with no improvement. She has chronic renal failure and is on dialysis Saturday, , Saturday by Dr. Nava. She probably had an AV fistula placed on Saturday of this week in her right upper arm, but is not working. She did receive dialysis on Saturday and stated that very little fluid was taken off. In er found to have small bowel obstruction and admitted with consult to general surgery and will consult nephrology CBC/BMP: 11/13/16 1200 Hospital Course -Metastatic endometrial ca. bowel obstruction related to tumor. Pt seen by station mechanic apprentice/onc and general surgery.No surgery indicated. Further chemo not felt to improve quality or length of life Pt and family met with palliative care for meeting. Ultimately they chose hospice care and she will be transferred to care center. She was not able to tolerate any po intake and ngt output remained high. Pt Condition on Discharge: Deteriorating Discharge Disposition: Hospice/Med Facility Discharge Instructions DIET: Follow Instructions for: Clear Liquid Diet Activities you can perform: Regular-No Restrictions Ted Blake MD Nov 17, 2016 13:09
[2016-11-17] MEDS: PANTOPRAZOLE SODIUM 40 MG VIAL IV PUSH SCH (15:16)
[2016-11-17 16:00] VITALS: BP 80/50; PULSE 109; RESP 16; TEMP 97.1; O2SAT 97
[2016-11-17 20:32] VITALS: BP 77/48; PULSE 112; RESP 17; TEMP 97.1; O2SAT 97
[2016-11-18 00:34] VITALS: BP 84/54; PULSE 112; RESP 17; TEMP 96; O2SAT 97
[2016-11-18] MEDS: HYDROmorphone HCL PF 1 MG/ML VIAL IV PRN ×3 (03:50→13:10)
[2016-11-18 04:15] VITALS: BP 97/52
[2016-11-18] MEDS: SODIUM CHLOR 0.9% 1000 ML INJ 1,000 ML IV SCH (05:59)
[2016-11-18 07:58] VITALS: BP 98/69; PULSE 111; RESP 16; TEMP 95.6; O2SAT 98
[2016-11-18] MEDS: VITAMIN B CMPLX/VITC/FOLIC AC CAP PO SCH (09:00)
[2016-11-18] MEDS: ONDANSETRON HCL 4 MG/2 ML VIAL IVP PRN (09:09)
[2016-11-18] MEDS: METOCLOPRAMIDE HCL 10 MG/2 ML VIAL IV PUSH PRN (09:09)
[2016-11-18] MEDS: LORazepam 2 MG/ML VIAL IVP PRN (09:14)
[2016-11-18] MEDS: HEPARIN SODIUM - SQ 10,000 UNITS/ML VIAL SQ SCH (09:15)
[2016-11-18] MEDS: SODIUM CHLORIDE 0.9% FLUSH 5 ML FLUSH FLUSH SCH (09:16)
[2016-11-18 12:04] VITALS: BP 89/66; PULSE 116; RESP 16; TEMP 96; O2SAT 97
== END 2016-11-18 13:54 | disposition hospice, inpatient (51) | DRG 388 ==
LOC: NEPC 14:15 → NEDA 18:14 → NEDH 22:27 → N06A 11-09 03:40
PROVIDERS: ADMIT Hospitalist; ATTEND Hospitalist
PROC: 5A1D60Z (ICD-10-PCS; principal; 2016-11-09)
DX: K56.69 Other intestinal obstruction (principal); N18.6 End stage renal disease; J90 Pleural effusion, not elsewhere classified; C78.00 Secondary malignant neoplasm of unspecified lung; C78.7 Secondary malignant neoplasm of liver and intrahepatic bile duct; I12.0 Hypertensive chronic kidney disease with stage 5 chronic kidney disease or end stage renal disease; R62.7 Adult failure to thrive; N13.30 Unspecified hydronephrosis; E11.22 Type 2 diabetes mellitus with diabetic chronic kidney disease; E86.0 Dehydration; C54.1 Malignant neoplasm of endometrium; Z99.2 Dependence on renal dialysis; Z79.01 Long term (current) use of anticoagulants; M19.90 Unspecified osteoarthritis, unspecified site; K21.9 Gastro-esophageal reflux disease without esophagitis; Z86.718 Personal history of other venous thrombosis and embolism; R59.0 Localized enlarged lymph nodes; E78.00 Pure hypercholesterolemia, unspecified; D25.9 Leiomyoma of uterus, unspecified; Z51.5 Encounter for palliative care; F41.9 Anxiety disorder, unspecified; H40.9 Unspecified glaucoma; J30.9 Allergic rhinitis, unspecified; H26.9 Unspecified cataract; Z83.3 Family history of diabetes mellitus; Z80.0 Family history of malignant neoplasm of digestive organs; Z83.6 Family history of other diseases of the respiratory system; Z66 Do not resuscitate; D63.8 Anemia in other chronic diseases classified elsewhere; I95.9 Hypotension, unspecified; R00.0 Tachycardia, unspecified
CPT/HCPCS: 71010; 74000; 74176; 80048; 80053; 83690; 83735; 85025; 85610; 85730; 90935; 93005; 96374; 96375; C9113; J1170; J1580; J1644; J2060; J2405; J2765; J7030; J7040; Q4081